=== PATIENT | female | born 1945 | race Caucasian/White ===

== ENCOUNTER 2024-08-22 08:05 | Outpatient (CLI) | payer MEDICARE, SELFPAY ==
--- OUTSIDE RECORDS SUMMARY | 2024-08-22 08:33 | XMS_ITS | Continuity of Care Document ---
Author Organization [place] - [facility] [employer] [facility], [facility] [place] Address [address] [facility] [address] [place] [address] Assessment No assessment recorded. Plan of Treatment Reminders Order Date Submit Date Provider Last Modified By Organization Details Last Modified Time Details Appointments None recorded. Lab vitamin D, 25-hydrox y, total, serum [address] [facility] [place], [address], 5 10:59:06 lipid panel, serum [address] [facility], [address] [place], [address], 5 10:59:05 CMP, serum or plasma [address] [facility], [address] [place], [address], 5 10:59:05 HbA1c (hemoglob in A1c), blood [address] [facility], [address] [place], [address], 5 10:59:05 microalbu min, urine [address] [facility], [address] [place], [address], 5 10:59:06 CBC w/ auto diff [address] [facility], [address] [place], [address], 5 10:59:04 TSH, serum or plasma [address] [facility], [address] [place], [address], 5 10:59:04 T4, free, serum [address] [facility], [address] [place], [address], 5 10:59:05 Referral None recorded. Procedures None recorded. Surgeries None recorded. Imaging None recorded. Medication Orders None recorded. Patient TargetsNo targets recorded. Patient Instructions Encounter Date Encounter Id Patient Instructions Last Modified By Organization Details Last Modified Time 08/21/2024 [id number] Hypertension, hypothyroidism, hyperlipidemia, type 2 diabetes, and anxiety disorder clinically stable. Check blood work in the form of CBC, CMP, lipid, thyroid, hemoglobin A1c microalbumin. Will also get a vitamin-D level. Follow-up in six months Additional Orders - Directives - Recommendations 1. check with [facility] pharmacy and see if she has received the most recent pneumonia shot Follow Up: 6 Months Approximate Date: 02/17/2025 Portions of record are template driven. When necessary additional context will be provided. Additionally some portions have been created with voice recognition software. Occasional wrong-word or [id number] substitutions may have occurred due to the inherent limitations of voice recognition software. Read the chart carefully and recognize, using context, where substitutions may have occurred. Created: Peter Lux M.D. 08.21.2024 09:44 AM Not available 08/21/2024 10:44:23 Reason for Referral None Reported. Problems Name Problem SNOMED Code Status Onset Date Resolution Date Notes Provider Name and Address Organization Details Recorded Time Anxiety disorder 322191100 Active 2018 Not Available [facility] 3 20:48:10 Gastroesophag eal reflux disease 891627737 Active Not Available [facility] 3 20:48:10 Pure hypercholeste rolemia 866038808 Active Not Available [facility] 3 20:48:10 Low back strain 665996130 Active 2021 Not Available [facility] 3 20:48:10 Postartificia l menopausal syndrome 45864697 Active Not Available [facility] 3 20:48:10 Vitamin D deficiency 27211289 Active 2021 Not Available [facility] 3 20:48:10 Depressive disorder 31588132 Active 2018 Not Available [facility] 3 20:48:10 Hypothyroidis m 78559655 Active Not Available [facility] 3 20:48:10 Type 2 diabetes mellitus 98328297 Active Not Available [facility] 3 20:48:10 Essential hypertension 02278094 Active 2021 Not Available [facility] 3 20:48:10 Increased liver function 06050502 Active Not Available [facility] 3 20:48:10 Cough 49063782 Active 2022 Not Available [facility] 3 20:48:10 Senile osteoporosis 52983569 Active 2022 Not Available [facility] 3 20:48:10 Mammography abnormal 827834736 Active 2022 Not Available [facility] 3 20:48:10 Type 2 diabetes mellitus without complication 223603687 Active 2023 Loly cisneros, [facility] 4 10:30:02 Hyponatremia 71439590 Active 2023 Bing Cleveland CMA [facility] 4 10:54:26 Problem Notes None recorded. Medical Equipment None Reported. Allergies Allergen ID Allergen Name Allergen Category Reaction Reaction Severity Criticality Documentation Date Start Date Code Code System Note Provider Name and Address Organization Details Recorded Time 07815 Substance with sulfonami de structure and antibacte rial mechanism of action (substanc e) medicatio n rash Not available Not available 08/09/2022 [id number] SNOMED Not Available [facility] 3 15:28:07 Medications Name Sig Start Date Stop Date Status Note LastModified by Organization Details LastModified Time Pravachol 40 mg tablet Take 1 tablet every day by oral route. active Not Available Not Available No t Available cyclobenz aprine 10 mg tablet TAKE 1 TABLET BY MOUTH THREE TIMES DAILY 02/20 completed Not Available Not Available Not Available amoxicill in 500 mg capsule Take 1 capsule 3 times a day by oral route for 10 days. 07/20 completed Not Available Not Available Not Available metformin 500 mg tablet TAKE 1 TABLET THREE TIMES A DAY WITH FOOD active Not Available Not Available No t Available Tylenol-C odeine #4 300 mg-60 mg tablet Take 1 tablet every 6 hours by oral route. 08/06 completed Not Available Not Available Not Available lisinopri l 20 mg-hydroc hlorothia zide 12.5 mg tablet TAKE ONE TABLET TWICE DAILY 02/21 completed Not Available Not Available Not Available azithromy tiff 250 mg tablet TK 2 TS PO ON DAY 1, THEN TK 1 T PO D FOR 4 DAYS 08/26 completed Not Available Not Available Not Available benzonata te 200 mg capsule TAKE 1 CAPSULE BY MOUTH THREE TIMES DAILY 02/20 completed Not Available Not Available Not Available lisinopri l 20 mg tablet Take 1 tablet every day by oral route. 02/21 completed Not Available Not Available Not Available diphenoxy late-atro pine 2.5 mg-0.025 mg tablet TAKE ONE TABLET EVERY 6 HOURS NEEDED FOR DIARRHEA 07/14 completed Not Available Not Available Not Available amlodipin e 2.5 mg tablet TAKE 1 TABLET BY MOUTH DAILY 12/20 completed Not Available Not Available Not Available chlorthal idone 25 mg tablet T1 08/27 completed Not Available Not Available Not Available Aspir-Low 81 mg tablet,de layed release Take 1 tablet every day by oral route. 2013 active Not Available Not Available Not Avai lable amlodipin e 5 mg tablet TAKE 1 TABLET BY MOUTH EVERY DAY active Not Available Not Available No t Available glimepiri de 2 mg tablet TAKE ONE TABLET DAILY 07/14 completed Patient takes 1/2 tablet daily (1mg daily) Not Available Not Available Not Available levothyro xine 75 mcg tablet TAKE 1 TABLET BY MOUTH DAILY IN THE MORNING ON AN EMPTY STOMACH active Not Available Not Available No t Available Macrobid 100 mg capsule Take 1 capsule every 12 hours by oral route. 02/04 completed Not Available Not Available Not Available benzonata te 100 mg capsule Take 1 capsule 3 times a day by oral route. 07/14 completed Not Available Not Available Not Available simvastat in 20 mg tablet TAKE 1 TABLET BY MOUTH DAILY active Not Available Not Available No t Available metformin 1,000 mg tablet TAKE 1 TABLET BY MOUTH TWICE DAILY 02/20 completed Not Available Not Available Not Available hydrochlo rothiazid e 25 mg tablet TAKE 1 TABLET BY MOUTH EVERY DAY 02/20 completed Not Available Not Available Not Available methylpre dnisolone 4 mg tablets in a dose pack Take by oral route as per package insert 01/12 completed Not Available Not Available Not Available lisinopri l 40 mg tablet TAKE 1 TABLET BY MOUTH DAILY active Not Available Not Available No t Available Mucinex 600 mg tablet, extended release Take 1 tablet every 12 hours by oral route. active Not Available Not Available No t Available escitalop hema 10 mg tablet Take 1 tablet every day by oral route. 04/01 completed Not Available Not Available Not Available escitalop hema 20 mg tablet TAKE 1 TABLET BY MOUTH DAILY active Not Available Not Available No t Available Vitamin D3 qd 01/18 completed Not Available Not Available Not Available Calcium 600 with Vitamin D3 10/01 completed Not Available Not Available Not Available hydrochlo rothiazid e 12.5 mg tablet Take 1 tablet every day by oral route. 12/07 completed Not Available Not Available Not Available Caltrate plus D 600 mg (carbonat e)-20 mcg (800 unit) chewable tablet Take 1 tablet every day by oral route. 2017 active Not Available Not Available Not Avai lable Vitals Date Recorded Body height Body mass index (BMI) Body weight Heart rate Body temperature Oxygen saturation Oxygen saturation in Arterial blood by Pulse oximetry Systolic blood pressure Diastolic blood pressure Provider Name and Address Organization Details Last Updated DateTime 5 157.48 cm 26.3 kg/m2 47199.3 g 89 /min 97 [degF] 97 % 97 % 122 mm[Hg] 74 mm[Hg] Holly Walden [place] - [facility] [employer] 5 10:29:39 Social History Question Answer Notes LastModified by Organizat ion Details LastModified Time In The 14 Days Before Symptom Onset, Have You Had Close Contact With A Laboratory-confirme d COVID-19 While That Case Was Ill? No [id number] Information not available 08/09/2022 In The 14 Days Before Symptom Onset, Have You Had Close Contact With A Person Who Is Under Investigation For COVID-19 While That Person Was Ill? No [id number] Information not available 08/09/2022 Have You Recently Traveled Abroad? No [id number] Information not available 08/09/2022 Sex: Unknown Functional Status None recorded. Mental Status None recorded. Family History Nothing Reported Notes:Mother 90 yea rs old from Dementia and CHF Father 89 years old from HTN, Arthritis and infirmities 2 Brothers 1 Living of cirrhosis 2 Sisters 2 Living Medical History Condition Response NERVE DISEASE N BLINDNESS N RHEUMATIC FEVER N KIDNEY STONES N BLADDER PROBLEMS N OTHER # 1 N POLIO N LUNG DISEASE/DISORDER N RADIATION / CHEMOTHERAPY N COPD N Other # 2 N BLOOD DISEASES N SURGERY N EAR OR HEARING PROBLEMS N MUMPS N BOWEL PROBLEMS N DEPRESSION (INCLUDING POST ) Y STROKE/TIA N ULCERS N BENIGN PROSTATIC HYPERPLASIA N MEASLES N MYOCARDIAL INFARCTION N OBESITY N GERD/NAUSEA Y ANEURYSM N URINARY/BLADDER/KIDNEY PROBLEMS N INPATIENT PSYCH CARE N CORONARY ARTERY DISEASE (CAD) N ADDICTION CONCERNS N ENDOMETRIOSIS N Impotence N USE OF BLOOD THINNERS N SKIN PROBLEMS N GASTROINTESTINAL DISORDER N PERIPHERAL VASCULAR DISEASE N MUSCLE,JOINT OR BONE PROBLEMS N GASTROINTESTINAL BLEEDING N BLOOD CLOTS N ASTHMA N CATARACTS N ERECTILE DYSFUNCTION N VARICOSITIES N GI PROBLEMS N Low Testosterone N INFERTILITY N AIDS/HIV N CHEMOTHERAPY / RADIATION N LIVER DISEASE N MALE HYPOGONADISM N HYPERTENSION Y Deficiency N ANXIETY DISORDER Y BLOOD TRANSFUSION N ANEMIA/BLOOD DISORDER N CHRONIC EAR INFECTIONS N BRONCHITIS N TUBERCULOSIS N GLAUCOMA N FOOT PROBLEM N DIVERTICULITIS N SLEEP APNEA N CHICKENPOX N INFECTIOUS DISEASE N HEART ARRHYTHMIA N PROSTATE N INSOMNIA N HIGH CHOLESTEROL / HYPERLIPIDEMIA Y HYPERTHYROIDISM N EYE PROBLEMS N NEUROLOGICAL PROBLEMS N EDEMA N CHRONIC PAIN SYNDROME N HYPOTHYROIDISM Y CAROTID BLOCKAGE N CONSTIPATION N BACK / NECK PROBLEMS N HAVE YOU BEEN HOSPITALIZED OR SEEN IN [facility] IN THE PAST YEAR ? N ATHEROSCLEROSIS N BREAST PROBLEMS N DIALYSIS N ECZEMA N OSTEOPOROSIS N ARTHRITIS N NO SIGNIFICANT PAST MEDICAL HISTORY N APPENDICITIS N DIABETES, TYPE Y BAD TEETH N ENT N HEARTBURN / REFLUX N AUTISM SPECTRUM DISORDER (ASD) N HEPATITIS / LIVER DISEASE N PULMONARY DISEASE N GOUT N SLEEP DISORDER N ALZHEIMER'S DISEASE N Brain Problems N HERPES N DEMENTIA N HEADACHES/MIGRAINES N SEIZURES/EPILEPSY N VASCULAR DISEASE N PACEMAKER N Blood Disorder N DIZZINESS N HEART DISEASE/HEART PROBLEMS N KIDNEY DISEASE N MULTIPLE SCLEROSIS N CARDIAC ARRHYTHMIA N CANCER: SPECIFY N ANESTHESIA COMPLICATIONS N ATRIAL FIBRILLATION N Gall Stones N PULMONARY EMBOLISM N AUTOIMMUNE DISEASE N Gynecological HistoryNo gynecological history recorded. Obstetrics History GPAL:G 0 P 0 0 0 0 Immunizations Vaccine Type Date Status Note Provider Nam e and Address Organization Details Recorded Time Respiratory syncytial virus (RSV) MAB, unspecified 3 completed [facility] [employer] [facility] 04/19/2023 16:29:34 Influenza, high-dose, trivalent, PF 4 [facility]24 17:34:10 influenza, unspecified formulation 8 completed Not Available [facility] 08/09/2022 15:27:57 Influenza, high-dose, trivalent, PF 7 completed Not Available [facility] 08/09/2022 15:27:57 Influenza, high-dose, trivalent, PF 3 completed Not Available [facility] 08/09/2022 15:27:57 SARS-COV-2 (COVID-19) vaccine, UNSPECIFIED 1 completed Not Available [facility] 08/09/2022 15:27:57 SARS-COV-2 (COVID-19) vaccine, UNSPECIFIED 1 completed Not Available [facility] 08/09/2022 15:27:57 Pneumococcal conjugate PCV 13 5 completed Not Available [facility] 08/09/2022 15:27:57 Past Encounters Encounter ID Performer Location Encounter Start Date Encounter Closed Date Diagnosis/Indication Diagnosis SNOMED-CT Code Diagnosis ICD10 Code Diagnosis Note [id number] Peter Lux MD [facility] [address] [place] [address] 08/21/2024 10:03:42 08/21/2024 11:07:39 Essential hypertension 43325076 I10 Hypothyroidism 22101090 E03.9 Pure hypercholesterolemia 422413428 E78.00 Anxiety disorder 4594571 06 F41.9 Type 2 rosario betes mellitus without complication 490759404 E11.9 Vitamin D deficiency 347 64631 E55.9 Health Concerns Section Related Observation LastModified by Organization Detai ls LastModified Time None Recorded Concern Status LastModified by Organization Details LastModified Time None Recorded Payers Encounter Date Sequence Insurance Name Policy Number Policy Jacob Covered Member ID Jacob Member ID Guarantor Name 08/21/2024 1 [facility] (MEDICARE REPLACEMENT/A DVANTAGE - HMO) [id number] Chantel Carson [id number] Chantel Carson Notes Date Note Type Note Provider Name and Address Organization Details Recorded Time text/html Patient Name: Chantel YeesDate Of Service: August ( 08.21.2024 ): 1945 Age: 79 There has been approximately a 6 lb weight gain since 02/21/2024. This represents approximately a 4.3% change in weight. Weight change attributable to lifestyle changes. Vital Signs:Blood Pressure: Sitting Rt. Arm 122/74Pulse: Sitting 89 /min and RegularRespiratory Rate: 16Height 62 in or 1.6 mWeight 144 lb or 65.3 kgBMI 26.3Temperature: 97 F or 36.1 CPulse Oximetry: 97 % at rest on no oxygen Chief Complaint: Addressed in HPI Problems or conditions discussed in the HPI were the only ones reviewed during the encounter.Only social and family history addressed in the HPI were reviewed during this encounter. Attendant(s): NoneConstitutional and Systemic Symptoms:none Medication Reconciliation: from medication list. History of Present Illness #1. Essential Hypertension: Stage: Stage I Interval Neurological Complaints no headaches. No shortness of breath, orthopnea or cardiovascular symptoms. No other symptoms related to end organ damage. Pressure has been under fair control. Currently normal. No other end organ symptoms or findings. Therapy reviewed regarding management of hypertension and includes salt restriction and Lisinopril and Norvasc. #2. Type II Hypercholesterolaemia: Currently taking medication and tolerating well. No interval complaints of any muscle pain or arthralgia. No significant liver changes with medications. Last lipid panel: excellent control. Therapy reviewed regarding treatment of cholesterol management and include diet and Zocor. #3. Hx of hypothyroidism currently stable. Heat intolerance: no Fatigue: no Weight gain: no Difficulty concentrating: no Muscle Symptoms: none Skin Texture: normal Skin Color: normal Currently taking synthroid. #4. Type II Diabetes: Has had no polyuria polyphagia or polydipsia. Has had no hypoglycemic like responses. No new history of any numbness, tingling, weakness or visual problems. No nausea, anorexia or other constitutional symptoms. There has been no foot problems or non healing lesions. The last HAIC was DCCT HAIC: 6.1 Calculated MB mg%. CGM: No. Average blood sugars 100-115 mg%. Checking sugars : infrequently. Medication Types Include: diet Secondary complications include none. Macro-vascular complications include none. Therapy reviewed regarding diabetic management and include diet only Compliance: good Renal Protection: ARELIS inhibitors Lipid management: statins Urinary microalbumin: A1 . Ophthalmological: has seen eye doctor within the last year. Control: Below 6.2 #5. Anxiety Disorder: History of anxiety disorder. There has been no panic attacks. No interval complaints of any vegetative or other signs of depression. Taking no escitalopram Discussed possibility of decreasing and weaning off medication. Feels that current regimen is working fine and wishes not to change the current treatment regimen. Medication not causing any sedation or cognitive dysfunction and there is no contraindication to continue current therapy. Active Medication ListSynthroid 0.075 MG One Daily For ThyroidEscitalopram 20 MG (CAPSULE - ORAL) One DailyLisinopril 40 MG TABLET Once DailyAspirin 81 MG One DialyZocor 20 MG (TABLET - ORAL) Once DailyNorvasc 5 MG (TABLET - ORAL) Once Daily Social HistorySOCIAL HISTORY:Smoking Hx: 1 of cigarettes per day for 5 years. Quit 1968 Drinking Hx: 3 Cups of coffee per day, 2 Cups of tea per day.Exercise: InfrequentlySexual Hx: Sexually ActiveOccupation: Housewife Family HistoryFAMILY HISTORY:Mother 90 years old from Dementia and CHFFather 89 years old from HTN, Arthritis and infirmities2 Brothers 1 Living of cirrhosis2 Sisters 2 Living TEST RESULT RANGE UNITSCBC/COMPLETE BLD COUNT W/DIFF Date: 02/21/2024WHITE BLOOD CELLS 7.7 4.2-10.8 X10'3/ULHEMOGLOBIN 12.6 12.0-15.6 G/DLHEMATOCRIT 38.3 35.7-45.7 %PLATELETS 296 150-400 X10'3/ULCOMPREHENSIVE METABOLIC PANEL Date: 02/21/2024SODIUM 134 137-145 MMOL/LPOTASSIUM 4.7 3.5-5.1 MMOL/LALKALINE PHOSPHATASE 64 38-126 U/LALANINE AMINOTRANSFERASE 25 0-35 U/LASPARTATE AMINOTRANSFERASE 38 15-37 U/LBILIRUBIN, TOTAL 0.80 0.20-1.30 MG/DLCALCIUM 9.3 8.4-10.2 MG/DLHA1C, SEND-OUT TO [facility] Date: 02/21/2024HEMOGLOBIN A1C 6.1 4.8-5.6 %LIPID PANEL Date: 4CHOLESTEROL 147 140-199 MG/DLTRIGLYCERIDES 191 0-150 MG/DLLDL CHOLESTEROL, CALCULATED 60 0-130 MG/DLHDL CHOLESTEROL 49 40- MG/DL Peter Lux MD [address] [facility], [facility] [address], [place], [address], [place] [facility] 08/21/2024 10:44:39 OBGyn Episode No OBEpisode recorded.
--- OUTSIDE RECORDS SUMMARY | 2024-08-22 08:33 | XMS_ITS | Data Portability ---
Author Organization [place] - [facility] [employer], Main Office Address [address] [place] [address] Assessment No assessment recorded. Plan of Treatment Reminders Order Date Submit Date Provider Last Modified By Organization Details Last Modified Time Details Appointments None recorded. Lab vitamin D, 25-hydrox y, total, serum 025 025 [facility] - Outpatient Lab, [address] [place], [address], 5 10:59:06 lipid panel, serum [address] Outpatient Lab, [address] [place], [address], 5 10:59:05 CMP, serum or plasma [address] Outpatient Lab, [address] [place], [address], 5 10:59:05 HbA1c (hemoglob in A1c), blood 025 025 [email or web address] [facility] Outpatient Lab, [address] [place], [address], 5 10:59:05 microalbu min, urine [address] Outpatient Lab, [address] [place], [address], 5 10:59:06 CBC w/ auto diff [address] Outpatient Lab, [address] [place], [address], 5 10:59:04 TSH, serum or plasma 025 025 [id number] [facility] - Outpatient Lab, [address] [place], [address], 5 10:59:04 T4, free, serum 025 025 [facility] - Outpatient Lab, [address] [place], [address], 5 10:59:05 HbA1c (hemoglob in A1c), blood 024 024 [id number] [facility] - Outpatient Lab, [address] [place], [address], 4 14:41:13 lipid panel, serum 024 024 [id number] [facility] - Outpatient Lab, [address] [place], [address], 4 14:41:12 CMP, serum or plasma 024 024 [id number] [facility] - Outpatient Lab, [address] [place], [address], 4 14:41:12 TSH, serum or plasma 024 024 [id number] [facility] - Outpatient Lab, [address] [place], [address], 4 14:41:12 T4, free, serum 024 024 [facility] - Outpatient Lab, [address] [place], [address], 4 14:41:13 CBC w/ auto diff 024 024 [id number] [facility] - Outpatient Lab, [address] [place], [address], 4 14:41:13 HbA1c (hemoglob in A1c), blood [id number] [place] [address] Outpatient Lab, [address] [place], [address], 4 15:58:22 microalbu min/creat inine, mass ratio, urine [id number] [place] [address] - Outpatient Lab, [address] [place], [address], 4 15:58:22 lipid panel, serum 024 [facility] Outpatient Lab, [address] [place], [address], 4 14:59:21 CMP, serum or plasma [facility] Outpatient Lab, [address] [place], [address], 4 14:59:36 CBC w/ auto diff 024 [facility] Outpatient Lab, [address] [place], [address], 4 13:02:26 TSH, serum or plasma 024 [facility] Outpatient Lab, [address] [place], [address], 4 15:51:29 T4, free, serum 024 [facility] Outpatient Lab, [address] [place], [address], 4 15:17:12 HbA1c (hemoglob in A1c), blood [id number] Outpatient Lab, [address] [place], [address], 3 17:52:05 microalbu min/creat inine, mass ratio, urine 023 023 [id number] [facility] Outpatient Lab, [address] [place], [address], 3 17:52:05 lipid panel, serum [address] [facility] Outpatient Lab, [address] [place], [address], 3 13:54:26 CMP, serum or plasma [address] [facility] Outpatient Lab, [address] [place], [address], 3 13:54:31 CBC w/ auto diff [address] [facility] Outpatient Lab, [address] [place], [address], 3 13:47:30 TSH, serum or plasma [address] [facility] Outpatient Lab, [address] [place], [address], 3 14:21:17 T4, free, serum [address] [facility] Outpatient Lab, [address] [place], [address], 3 14:09:27 HbA1c (hemoglob in A1c), blood 023 023 [email or web address] [facility] Outpatient Lab, [address] [place], [address], 3 15:14:04 microalbu min, urine [address] [facility] Outpatient Lab, [address] [place], [address], 3 18:53:51 lipid panel, serum [address] [facility] Outpatient Lab, [address] [place], [address], 3 18:51:45 CMP, serum or plasma [address] [facility] Outpatient Lab, [address] [place], [address], 3 18:51:41 CBC w/ auto diff [address] [facility] Outpatient Lab, [address] [place], [address], 3 18:28:57 TSH, serum or plasma [address] [facility] Outpatient Lab, [address] [place], [address], 3 19:20:04 T4, free, serum [address] [facility] Outpatient Lab, [address] [place], [address], 3 19:18:27 Referral None recorded. Procedures None recorded. Surgeries None recorded. Imaging None recorded. Medication Orders None recorded. Patient TargetsNo targets recorded. Patient Instructions Encounter Date Encounter Id Patient Instructions Last Modified By Organization Details Last Modified Time 08/25/2022 [id number] Follow-up hypertension -hyperlipidemia- type 2 diabetes -hypothyroidism clinically stable. Check blood work in the form of CBC, CMP, lipid, thyroid, hemoglobin A1c and microalbumin. Continue on current Rx and follow-up in six months [email or web address] Not available 08/25/2022 11:27:49 02/23/2023 [id number] Hypertension -hypothyroidism -hyperlipidemia- type 2 diabetes all clinically stable. Does need a Cologuard test. Will check blood work consisting of CBC, CMP, lipid, thyroid, hemoglobin A1c and microalbumin. Continue on current medications and follow-up in six months. Portions of the record may have been created with voice recognition software. Occasional wrong-word or s ound-a-like substitutions may have occurred due to the inherent limitations of voice recognition software. Read the chart carefully and recognize, using context, where substitutions have occurred. Leda Next Appt: 6 Months Approximate Date: 08/22/2023 [email or web address] Not available 02/23/2023 11:00:38 08/24/2023 [id number] Follow-up hypertension, hypothyroidism, hyperlipidemia, type 2 diabetes of mild anxiety and depressive disorder all clinically stable. Check blood work consisting of CBC, CMP, lipid, thyroid, hemoglobin A1c and microalbumin. Continue on current medications and follow-up in six months Portions of the record may have been created with voice recognition software. Occasional wrong-word or s ound-a-like substitutions may have occurred due to the inherent limitations of voice recognition software. Read the chart carefully and recognize, using context, where substitutions have occurred. [email or web address] Not available 08/24/2023 11:29:33 02/21/2024 [id number] Follow up for HT N, Cholesterol, Diabetes, Hypothyroidism and Depression stable. Continue on current Rx. Check CBC,CMP,Thyroid,Lip id and HAIC. Next Appointment: 6 Months Approximate Date: 08/19/2024 Portions of the record may have been created with voice recognition software. Occasional wrong-word or s ound-a-like substitutions may have occurred due to the inherent limitations of voice recognition software. Read the chart carefully and recognize, using context, where substitutions have occurred. [email or web address] Not available 02/21/2024 14:38:57 08/21/2024 [id number] Hypertension, hypothyroidism, hyperlipidemia, type 2 diabetes, and anxiety disorder clinically stable. Check blood work in the form of CBC, CMP, lipid, thyroid, hemoglobin A1c microalbumin. Will also get a vitamin-D level. Follow-up in six months Additional Orders - Directives - Recommendations 1. check with [facility] pharmacy and see if she has received the most recent pneumonia shot Follow Up: 6 Months Approximate Date: 02/17/2025 Portions of record are template driven. When necessary additional context will be provided. Additionally some portions have been created with voice recognition software. Occasional wrong-word or s ound-a-like substitutions may have occurred due to the inherent limitations of voice recognition software. Read the chart carefully and recognize, using context, where substitutions may have occurred. Created: Peter Lux M.D. 08.21.2024 09:44 AM [email or web address] Not available 08/21/2024 10:44:23 Reason for Referral None Reported. Results Created Date Observation Date Name Description Value Unit Range Abnormal Flag Note LastModifiedBy Organization Detail LastModifiedTime 08/26/1908/25/2022 CBC/C OMPLE TE BLD COUNT W/DIF F white blood cells 7.5 x10'3 /uL 4.2-10 .8 Not Available [facility] (Lab) [address] [place], [address], 08/25/2022 18:28:57 08/26/19 23 08/25/2022 CBC/C OMPLE TE BLD COUNT W/DIF F red blood cells 4.20 x10'6 /uL 3.80-5 .20 Not Available [facility] (Lab) [address] [place], [address], 08/25/2022 18:28:57 08/26/19 23 08/25/2022 CBC/C OMPLE TE BLD COUNT W/DIF F hemoglobin 12.1 g/dL 12.0-1 5.6 Not Available [facility] (Lab) [address] [place], [address], 08/25/2022 18:28:57 08/26/19 23 08/25/2022 CBC/C OMPLE TE BLD COUNT W/DIF F hematocrit 38.6 % 35.7-4 5.7 Not Available [facility] (Lab) [address] [place], [address], 08/25/2022 18:28:57 08/26/19 23 08/25/2022 CBC/C OMPLE TE BLD COUNT W/DIF F mean red cell volume 91.9 fL 82.0-9 9.0 Not Available [facility] (Lab) [address] [place], [address], 08/25/2022 18:28:57 08/26/19 08/25/2022 CBC/C OMPLE TE BLD COUNT W/DIF F mean red cell hemoglobin 28.8 pg 27.0-3 3.0 Not Available [facility] (Lab) [address] [facility] [place], [address], 08/25/2022 18:28:57 08/26/19 23 08/25/2022 CBC/C OMPLE TE BLD COUNT W/DIF F mean RBC HGB concentratio n 31.3 g/dL 31.0-3 6.0 Not Available [facility] (Lab) [address] [place], [address], 08/25/2022 18:28:57 08/26/19 23 08/25/2022 CBC/C OMPLE TE BLD COUNT W/DIF F red cell distribution width 14.3 % 11.8-1 5.5 Not Available [facility] (Lab) [address] [place], [address], 08/25/2022 18:28:57 08/26/19 23 08/25/2022 CBC/C OMPLE TE BLD COUNT W/DIF F platelets 319 x10'3 /uL 150-40 0 Not Available [facility] (Lab) [address] [place], [address], 08/25/2022 18:28:57 08/26/19 23 08/25/2022 CBC/C OMPLE TE BLD COUNT W/DIF F mean platelet volume 10.3 fL 9.0-12 .4 Not Available [facility] (Lab) [address] [place], [address], 08/25/2022 18:28:57 08/26/19 23 08/25/2022 CBC/C OMPLE TE BLD COUNT W/DIF F neutrophils 55.8 % 39.0-7 2.0 Not Available [facility] (Lab) [address] [place], [address], 08/25/2022 18:28:57 08/26/19 23 08/25/2022 CBC/C OMPLE TE BLD COUNT W/DIF F lymphocytes 33.0 % 16.0-4 7.0 Not Available [facility] (Lab) [address] [place], [address], 08/25/2022 18:28:57 08/26/19 23 08/25/2022 CBC/C OMPLE TE BLD COUNT W/DIF F monocytes 8.4 % 5.0-12 .0 Not Available [facility] (Lab) [address] [place], [address], 08/25/2022 18:28:57 08/26/19 23 08/25/2022 CBC/C OMPLE TE BLD COUNT W/DIF F eosinophils 1.9 % 1.0-7. 0 Not Available [facility] (Lab) [address] [place], [address], 08/25/2022 18:28:57 08/26/19 23 08/25/2022 CBC/C OMPLE TE BLD COUNT W/DIF F basophils 0.8 % 0.0-2. 0 Not Available [facility] (Lab) [address] [place], [address], 08/25/2022 18:28:57 08/26/19 23 08/25/2022 CBC/C OMPLE TE BLD COUNT W/DIF F immature granulocytes 0.1 % 0.00-0 .50 Not Available [facility] (Lab) [address] [place], [address], 08/25/2022 18:28:57 08/26/19 23 08/25/2022 CBC/C OMPLE TE BLD COUNT W/DIF F neutrophils, absolute count 4.17 x10'3 /uL 1.5-8. 0 Not Available [facility] (Lab) [address] [place], [address], 08/25/2022 18:28:57 08/26/19 23 08/25/2022 CBC/C OMPLE TE BLD COUNT W/DIF F lymphocytes, absolute count 2.47 x10'3 /uL 1.07-3 .43 Not Available [facility] (Lab) [address] [place], [address], 08/25/2022 18:28:57 08/26/19 23 08/25/2022 CBC/C OMPLE TE BLD COUNT W/DIF F monocytes, absolute count 0.63 x10'3 /uL 0.29-0 .99 Not Available [facility] (Lab) [address] [place], [address], 08/25/2022 18:28:57 08/26/19 23 08/25/2022 CBC/C OMPLE TE BLD COUNT W/DIF F eosinophils, absolute count 0.14 x10'3 /uL 0.02-0 .53 Not Available [facility] (Lab) [address] [place], [address], 08/25/2022 18:28:57 08/26/1908/25/2022 CBC/C OMPLE TE BLD COUNT W/DIF F basophils, absolute count 0.06 x10'3 /uL 0.01-0 .08 Not Available [facility] (Lab) [address] [place], [address], 08/25/2022 18:28:57 08/26/1908/25/2022 CBC/C OMPLE TE BLD COUNT W/DIF F immature granulocytes ,absolute 0.01 x10'3 /uL 0.00-0 .05 Not Available [facility] (Lab) [address] [place], [address], 08/25/2022 18:28:57 08/26/19 23 08/25/2022 CBC/C OMPLE TE BLD COUNT W/DIF F nucleated red blood cells 0.0 % -0 Not Available [facility] (Lab) [address] [place], [address], 08/25/2022 18:28:57 08/26/1908/25/2022 CBC/C OMPLE TE BLD COUNT W/DIF F NRBC# 0.00 x10'3 /uL Not Available [facility] (Lab) [address] [place], [address], 08/25/2022 18:28:57 08/26/19 23 08/25/2022 COMPR EHENS RA METAB OLIC PANEL sodium 135 mmol/ L 137-14 5 low Not Available [facility] (Lab) [address] [place], [address], 08/25/2022 18:51:41 08/26/19 23 08/25/2022 COMPR EHENS RA METAB OLIC PANEL potassium 3.8 mmol/ L 3.5-5. 1 Not Available [facility] (Lab) [address] [place], [address], 08/25/2022 18:51:41 08/26/19 23 08/25/2022 COMPR EHENS RA METAB OLIC PANEL chloride 99 mmol/ L 98-107 Not Available [facility] (Lab) [address] [place], [address], 08/25/2022 18:51:41 08/26/19 23 08/25/2022 COMPR EHENS RA METAB OLIC PANEL carbon dioxide 26 mmol/ L 22-30 Not Available [facility] (Lab) [address] [place], [address], 08/25/2022 18:51:41 08/26/19 23 08/25/2022 COMPR EHENS RA METAB OLIC PANEL anion gap 13.8 mmol/ L 14-22 low Not Available [facility] (Lab) [address] [place], [address], 08/25/2022 18:51:41 08/26/19 23 08/25/2022 COMPR EHENS RA METAB OLIC PANEL glucose 95 mg/dL 70-99 Not Available [facility] (Lab) [address] [place], [address], 08/25/2022 18:51:41 08/26/19 23 08/25/2022 COMPR EHENS RA METAB OLIC PANEL BUN 19 mg/dL 8-19 Not Available [facility] (Lab) [address] [place], [address], 08/25/2022 18:51:41 08/26/19 23 08/25/2022 COMPR EHENS RA METAB OLIC PANEL creatinine 0.78 mg/dL 0.66-1 .25 Not Available [facility] (Lab) [address] [place], [address], 08/25/2022 18:51:41 08/26/1908/25/2022 COMPR EHENS RA METAB OLIC PANEL GFR >60 Refer ence Range : [place] ge GFR Healt hy Adult : >60 mL/mi n/1.7 3 m2 Chron ic Kidne y Disea se: 15-60 mL/mi n/1.7 3 m2 Kidne y Failu re: <15/m L/min /1.73 m2 www.n iddk. nih.g ov The MDRD study equat ion has not been valid ated in child marco antonio <18 years of age; pregn ant women ; the elder ly >85 years of age; or in some racia l or ethni c subgr oups, such as Hispa nics. Outsi de the valid ated gabriel eters , estim ated GFR is less accur ate, requi ring clini keith judgm ent on a case- by-ca se basis . Clini keith inter preta tion for other races and ages must be made by the clini jennifer. The MDRD study equat ion has not been valid ated for the evalu ation of serum creat inine relat ed to nutri samuel l statu s or medic ation usage . For perso ns <18 years of age, a pedia tric GFR calcu lator is avail able on the [facility] websi te: https :[email or web address] xiao.wilberto lou/demetrius fragosoal s/kdo qi/gf r_cal culat or Not Available [facility] (Lab) [address] [place], [address], 08/25/2022 18:51:41 08/26/19 23 08/25/2022 COMPR EHENS RA METAB OLIC PANEL alkaline phosphatase 64 U/L 38-126 Not Available [facility] (Lab) [address] [place], [address], 08/25/2022 18:51:41 08/26/19 23 08/25/2022 COMPR EHENS RA METAB OLIC PANEL alanine aminotransfe rase 19 U/L 0-35 Not Available [facility] (Lab) [address] [place], [address], 08/25/2022 18:51:41 08/26/19 23 08/25/2022 COMPR EHENS RA METAB OLIC PANEL aspartate aminotransfe rase 28 U/L 15-37 Not Available [facility] (Lab) [address] [place], [address], 08/25/2022 18:51:41 08/26/19 23 08/25/2022 COMPR EHENS RA METAB OLIC PANEL bilirubin, total 0.80 mg/dL 0.20-1 .30 Not Available [facility] (Lab) [address] [place], [address], 08/25/2022 18:51:41 08/26/19 23 08/25/2022 COMPR EHENS RA METAB OLIC PANEL calcium 9.3 mg/dL 8.4-10 .2 Not Available [facility] (Lab) [address] [place], [address], 08/25/2022 18:51:41 08/26/19 23 08/25/2022 COMPR EHENS RA METAB OLIC PANEL total protein 7.8 g/dL 6.3-8. 2 Not Available [facility] (Lab) [address] [place], [address], 08/25/2022 18:51:41 08/26/19 23 08/25/2022 COMPR EHENS RA METAB OLIC PANEL albumin 4.6 g/dL 3.0-4. 4 high Not Available [facility] (Lab) [address] [place], [address], 08/25/2022 18:51:41 08/26/19 23 08/25/2022 COMPR EHENS RA METAB OLIC PANEL globulin 3.2 g/dL 2.6-4. 2 Not Available [facility] (Lab) [address] [place], [address], 08/25/2022 18:51:41 08/26/19 23 08/25/2022 COMPR EHENS RA METAB OLIC PANEL A/G ratio 1.4 ratio 1.0-2. 0 Not Available [facility] (Lab) [address] [place], [address], 08/25/2022 18:51:41 08/26/19 23 08/25/2022 LIPID PANEL cholesterol 137 mg/dL 140-19 9 low NIH YANG NSUS RECOM MENDA TION FOR BRITTNI STERO L: ADULT CHILD LOW RISK: <200 <170 BORDE RLINE : <200- 239 ----- HIGH RISK: >240 >200 Not Available [facility] (Lab) [address] [place], [address], 08/25/2022 18:51:45 08/26/1908/25/2022 LIPID PANEL triglyceride s 114 mg/dL 0-150 NIH YANG NSUS REPOR T RECOM MENDA TION FOR TRIGL YCERI BECKY: ADULT CHILD LOW RISK: <150 ----- BODER LINE: 150-1 99 ----- HIGH RISK: >200 ----- Not Available [facility] (Lab) [address] [place], [address], 08/25/2022 18:51:45 08/26/19 23 08/25/2022 LIPID PANEL HDL cholesterol 56 mg/dL 40- Not Available [facility] (Lab) [address] [place], [address], 08/25/2022 18:51:45 08/26/19 23 08/25/2022 LIPID PANEL LDL cholesterol, calculated 58 mg/dL 0-130 NIH YANG NSUS REPOR T RECOM MENDA TIONS FOR LDL: ADULT CHILD LOW RISK <130 <110 (OPTI MAL LDL) <100 ----- GEORGI RLINE : 130-1 59 ----- HIGH RISK: >160 >130 A TRIGL YCERI DE RESUL T >400 INVAL IDATE S THE CALCU LATIO N FOR LDL FRACT IONAT ION - THE LDL RESUL T WILL NOT BE REPOR MARILU. Not Available [facility] (Lab) [address] [place], [address], 08/25/2022 18:51:45 08/26/19 23 08/25/2022 MICRO ALBUM IN RANDO M URINE microalbumin , urine <6.0 mg/L 0.0-16 .6 Not Available [facility] (Lab) [address] [place], [address], 08/25/2022 18:53:51 08/26/19 23 08/25/2022 T4 FREE free T4 1.55 NG/dL 0.78-2 .19 Not Available [facility] (Lab) [address] [place], [address], 08/25/2022 19:18:27 08/26/19 23 08/25/2022 TSH thyroid-stim ulating hormone 0.280 uIU/m L 0.465- 4.680 low Not Available [facility] (Lab) [address] [facility] [place], [address], 08/25/2022 19:20:04 08/26/19 23 08/25/2022 HEMOG LOBIN A1C HA1C 6.4 % 4.0-6. 0 high Diabe gordon Elvin mahajan Crite brcye: <5.7% Consi stent with absen ce of diabe gordon 5.7-6 .4% Consi stent with incre ased risk for diabe gordon (pred iabet es) >OR=6 .5% Consi stent with diabe gordon REFER ENCE: Diabe gordon Care 2016, 39( ppl.1 ):s13 -s22 Not Available [facility] (Lab) [address] [place], [address], 08/25/2022 20:48:53 02/24/20 23 02/23/2023 CBC/C OMPLE TE BLD COUNT W/DIF F white blood cells 6.8 x10'3 /uL 4.2-10 .8 Not Available [facility] (Lab) [address] [place], [address], 02/23/2023 13:47:30 02/24/20 23 02/23/2023 CBC/C OMPLE TE BLD COUNT W/DIF F red blood cells 4.40 x10'6 /uL 3.80-5 .20 Not Available [facility] (Lab) [address] [place], [address], 02/23/2023 13:47:30 02/24/20 23 02/23/2023 CBC/C OMPLE TE BLD COUNT W/DIF F hemoglobin 12.9 g/dL 12.0-1 5.6 Not Available [facility] (Lab) [address] [place], [address], 02/23/2023 13:47:30 02/24/20 23 02/23/2023 CBC/C OMPLE TE BLD COUNT W/DIF F hematocrit 39.5 % 35.7-4 5.7 Not Available [facility] (Lab) [address] [place], [address], 02/23/2023 13:47:30 02/24/20 23 02/23/2023 CBC/C OMPLE TE BLD COUNT W/DIF F mean red cell volume 89.8 fL 82.0-9 9.0 Not Available [facility] (Lab) [address] [place], [address], 02/23/2023 13:47:30 02/24/20 23 02/23/2023 CBC/C OMPLE TE BLD COUNT W/DIF F mean red cell hemoglobin 29.3 pg 27.0-3 3.0 Not Available [facility] (Lab) [address] [place], [address], 02/23/2023 13:47:30 02/24/20 23 02/23/2023 CBC/C OMPLE TE BLD COUNT W/DIF F mean RBC HGB concentratio n 32.7 g/dL 31.0-3 6.0 Not Available [facility] (Lab) [address] [place], [address], 02/23/2023 13:47:30 02/24/20 23 02/23/2023 CBC/C OMPLE TE BLD COUNT W/DIF F red cell distribution width 14.0 % 11.8-1 5.5 Not Available [facility] (Lab) [address] [place], [address], 02/23/2023 13:47:30 02/24/20 23 02/23/2023 CBC/C OMPLE TE BLD COUNT W/DIF F platelets 285 x10'3 /uL 150-40 0 Not Available [facility] (Lab) [address] [place], [address], 02/23/2023 13:47:30 02/24/20 23 02/23/2023 CBC/C OMPLE TE BLD COUNT W/DIF F mean platelet volume 10.2 fL 9.0-12 .4 Not Available [facility] (Lab) [address] [place], [address], 02/23/2023 13:47:30 02/24/20 23 02/23/2023 CBC/C OMPLE TE BLD COUNT W/DIF F neutrophils 52.5 % 39.0-7 2.0 Not Available [facility] (Lab) [address] [place], [address], 02/23/2023 13:47:30 02/24/20 23 02/23/2023 CBC/C OMPLE TE BLD COUNT W/DIF F lymphocytes 35.0 % 16.0-4 7.0 Not Available [facility] (Lab) [address] [place], [address], 02/23/2023 13:47:30 02/24/2002/23/2023 CBC/C OMPLE TE BLD COUNT W/DIF F monocytes 9.2 % 5.0-12 .0 Not Available [facility] (Lab) [address] [place], [address], 02/23/2023 13:47:30 02/24/20 23 02/23/2023 CBC/C OMPLE TE BLD COUNT W/DIF F eosinophils 2.5 % 1.0-7. 0 Not Available [facility] (Lab) [address] [place], [address], 02/23/2023 13:47:30 02/24/20 23 02/23/2023 CBC/C OMPLE TE BLD COUNT W/DIF F basophils 0.7 % 0.0-2. 0 Not Available [facility] (Lab) [address] [place], [address], 02/23/2023 13:47:30 02/24/20 23 02/23/2023 CBC/C OMPLE TE BLD COUNT W/DIF F immature granulocytes 0.1 % 0.00-0 .50 Not Available [facility] (Lab) [address] [place], [address], 02/23/2023 13:47:30 02/24/20 23 02/23/2023 CBC/C OMPLE TE BLD COUNT W/DIF F neutrophils, absolute count 3.57 x10'3 /uL 1.5-8. 0 Not Available [facility] (Lab) [address] [place], [address], 02/23/2023 13:47:30 02/24/2002/23/2023 CBC/C OMPLE TE BLD COUNT W/DIF F lymphocytes, absolute count 2.39 x10'3 /uL 1.07-3 .43 Not Available [facility] (Lab) [address] [place], [address], 02/23/2023 13:47:30 02/24/20 23 02/23/2023 CBC/C OMPLE TE BLD COUNT W/DIF F monocytes, absolute count 0.63 x10'3 /uL 0.29-0 .99 Not Available [facility] (Lab) [address] [place], [id number], 02/23/2023 13:47:30 02/24/20 23 02/23/2023 CBC/C OMPLE TE BLD COUNT W/DIF F eosinophils, absolute count 0.17 x10'3 /uL 0.02-0 .53 Not Available [facility] (Lab) [address] [place], [id number], 02/23/2023 13:47:30 02/24/2002/23/2023 CBC/C OMPLE TE BLD COUNT W/DIF F basophils, absolute count 0.05 x10'3 /uL 0.01-0 .08 Not Available [facility] (Lab) [address] [place], [id number], 02/23/2023 13:47:30 02/24/20 23 02/23/2023 CBC/C OMPLE TE BLD COUNT W/DIF F immature granulocytes ,absolute 0.01 x10'3 /uL 0.00-0 .05 Not Available [facility] (Lab) [address] [place], [id number], 02/23/2023 13:47:30 02/24/20 23 02/23/2023 CBC/C OMPLE TE BLD COUNT W/DIF F nucleated red blood cells 0.0 % -0 Not Available [facility] (Lab) [address] [place], [address], 02/23/2023 13:47:30 02/24/20 23 02/23/2023 CBC/C OMPLE TE BLD COUNT W/DIF F NRBC# 0.00 x10'3 /uL Not Available [facility] (Lab) [address] [place], [address], 02/23/2023 13:47:30 02/24/20 23 02/23/2023 LIPID PANEL cholesterol 138 mg/dL 140-19 9 low NIH YANG NSUS RECOM MENDA TION FOR BRITTNI STERO L: ADULT CHILD LOW RISK: <200 <170 BORDE RLINE : <200- 239 ----- HIGH RISK: >240 >200 Not Available [facility] (Lab) [address] [place], [address], 02/23/2023 13:54:26 02/24/2002/23/2023 LIPID PANEL triglyceride s 125 mg/dL 0-150 NIH YANG NSUS REPOR T RECOM MENDA TION FOR TRIGL YCERI BECKY: ADULT CHILD LOW RISK: <150 ----- BODER LINE: 150-1 99 ----- HIGH RISK: >200 ----- Not Available [facility] (Lab) [address] [place], [address], 02/23/2023 13:54:26 02/24/20 23 02/23/2023 LIPID PANEL HDL cholesterol 54 mg/dL 40- Not Available [facility] (Lab) [address] [place], [address], 02/23/2023 13:54:26 02/24/20 23 02/23/2023 LIPID PANEL LDL cholesterol, calculated 59 mg/dL 0-130 NIH YANG NSUS REPOR T RECOM MENDA TIONS FOR LDL: ADULT CHILD LOW RISK <130 <110 (OPTI MAL LDL) <100 ----- BORDE RLINE : 130-1 59 ----- HIGH RISK: >160 >130 A TRIGL YCERI DE RESUL T >400 INVAL IDATE S THE CALCU LATIO N FOR LDL FRACT IONAT ION - THE LDL RESUL T WILL NOT BE REPOR MARILU. Not Available [facility] (Lab) [address] [place], [address], 02/23/2023 13:54:26 02/24/2002/23/2023 COMPR EHENS RA METAB OLIC PANEL sodium 133 mmol/ L 137-14 5 low Not Available [facility] (Lab) [address] [place], [address], 02/23/2023 13:54:31 02/24/20 23 02/23/2023 COMPR EHENS RA METAB OLIC PANEL potassium 4.6 mmol/ L 3.5-5. 1 Not Available [facility] (Lab) [address] [place], [address], 02/23/2023 13:54:31 02/24/20 23 02/23/2023 COMPR EHENS RA METAB OLIC PANEL chloride 97 mmol/ L 98-107 low Not Available [facility] (Lab) [address] [place], [address], 02/23/2023 13:54:31 02/24/20 23 02/23/2023 COMPR EHENS RA METAB OLIC PANEL carbon dioxide 28 mmol/ L 22-30 Not Available [facility] (Lab) [address] [place], [address], 02/23/2023 13:54:31 02/24/20 23 02/23/2023 COMPR EHENS RA METAB OLIC PANEL anion gap 12.6 mmol/ L 14-22 low Not Available [facility] (Lab) [address] [place], [address], 02/23/2023 13:54:31 02/24/20 23 02/23/2023 COMPR EHENS RA METAB OLIC PANEL glucose 106 mg/dL 70-99 high Not Available [facility] (Lab) [address] [place], [address], 02/23/2023 13:54:31 02/24/20 23 02/23/2023 COMPR EHENS RA METAB OLIC PANEL BUN 17 mg/dL 8-19 Not Available [facility] (Lab) [address] [place], [address], 02/23/2023 13:54:31 02/24/20 23 02/23/2023 COMPR EHENS RA METAB OLIC PANEL creatinine 0.80 mg/dL 0.66-1 .25 Not Available [facility] (Lab) [address] [place], [address], 02/23/2023 13:54:31 02/24/20 23 02/23/2023 COMPR EHENS RA METAB OLIC PANEL GFR >60 Refer ence Range : [place] ge GFR Healt hy Adult : >60 mL/mi n/1.7 3 m2 Chron ic Kidne y Disea se: 15-60 mL/mi n/1.7 3 m2 Kidne y Failu re: <15/m L/min /1.73 m2 www.n iddk. nih.g ov The MDRD study equat ion has not been valid ated in child marco antonio <18 years of age; pregn ant women ; the elder ly >85 years of age; or in some racia l or ethni c subgr oups, such as Hispa nics. Outsi de the valid ated gabriel eters , estim ated GFR is less accur ate, requi ring clini keith judgm ent on a case- by-ca se basis . Clini keith inter preta tion for other races and ages must be made by the clini jennifer. The MDRD study equat ion has not been valid ated for the evalu ation of serum creat inine relat ed to nutri samuel l statu s or medic ation usage . For perso ns <18 years of age, a pedia tric GFR calcu lator is avail able on the [facility] websi te: https ://cynthia w.kid ninoska.o rg/pr ofess ional s/kdo qi/gf r_cal culat or Not Available [facility] (Lab) [address] [place], [address], 02/23/2023 13:54:31 02/24/20 23 02/23/2023 COMPR EHENS RA METAB OLIC PANEL alkaline phosphatase 61 U/L 38-126 Not Available [facility] (Lab) [address] [place], [address], 02/23/2023 13:54:31 02/24/20 23 02/23/2023 COMPR EHENS RA METAB OLIC PANEL alanine aminotransfe rase 23 U/L 0-35 Not Available [facility] (Lab) [address] [place], [address], 02/23/2023 13:54:31 02/24/20 23 02/23/2023 COMPR EHENS RA METAB OLIC PANEL aspartate aminotransfe rase 27 U/L 15-37 Not Available [facility] (Lab) [address] [place], [address], 02/23/2023 13:54:31 02/24/20 23 02/23/2023 COMPR EHENS RA METAB OLIC PANEL bilirubin, total 0.60 mg/dL 0.20-1 .30 Not Available [facility] (Lab) [address] [place], [address], 02/23/2023 13:54:31 02/24/20 23 02/23/2023 COMPR EHENS RA METAB OLIC PANEL calcium 9.6 mg/dL 8.4-10 .2 Not Available [facility] (Lab) [address] [place], [address], 02/23/2023 13:54:31 02/24/20 23 02/23/2023 COMPR EHENS RA METAB OLIC PANEL total protein 7.6 g/dL 6.3-8. 2 Not Available [facility] (Lab) [address] [place], [address], 02/23/2023 13:54:31 02/24/20 23 02/23/2023 COMPR EHENS RA METAB OLIC PANEL albumin 4.7 g/dL 3.0-4. 4 high Not Available [facility] (Lab) [address] [place], [address], 02/23/2023 13:54:31 02/24/20 23 02/23/2023 COMPR EHENS RA METAB OLIC PANEL globulin 2.9 g/dL 2.6-4. 2 Not Available [facility] (Lab) [address] [place], [address], 02/23/2023 13:54:31 02/24/20 23 02/23/2023 COMPR EHENS RA METAB OLIC PANEL A/G ratio 1.6 ratio 1.0-2. 0 Not Available [facility] (Lab) [address] [place], [address], 02/23/2023 13:54:31 02/24/20 23 02/23/2023 MICRO ALBUM N RNDM W/CRE AT RATIO ur creat 51.60 mg/dL REFER ENCE RANGE NOT ESTAB LISHE D FOR RANDO M URINE CREAT ININE Not Available [facility] (Lab) [address] [place], [address], 02/23/2023 14:00:27 02/24/20 23 02/23/2023 MICRO ALBUM N RNDM W/CRE AT RATIO microalbumin , urine <6.0 mg/L 0.0-16 .6 Not Available [facility] (Lab) [address] [place], [address], 02/23/2023 14:00:27 02/24/20 23 02/23/2023 T4 FREE free T4 1.18 NG/dL 0.78-2 .19 Not Available [facility] (Lab) [address] [place], [address], 02/23/2023 14:09:27 02/24/20 23 02/23/2023 TSH thyroid-stim ulating hormone 0.485 uIU/m L 0.465- 4.680 Not Available [facility] (Lab) [address] [place], [address], 02/23/2023 14:21:17 02/24/20 23 02/23/2023 HEMOG LOBIN A1C HA1C 6.0 % 4.0-6. 0 Diabe gordon Scree keyshawn Crite bryce: <5.7% Consi stent with absen ce of diabe gordon 5.7-6 .4% Consi stent with incre ased risk for diabe gordon (pred iabet es) >OR=6 .5% Consi stent with diabe gordon REFER ENCE: Diabe gordon Care 2015, 39(Farias ppl.1 ):s13 -s22 Not Available [facility] (Lab) [address] [place], [address], 02/23/2023 20:56:36 08/24/19 24 08/24/2023 CBC/C OMPLE TE BLD COUNT W/DIF F white blood cells 7.9 x10'3 /uL 4.2-10 .8 Not Available [facility] (Lab) [address] [place], [address], 08/24/2023 13:02:25 08/24/19 24 08/24/2023 CBC/C OMPLE TE BLD COUNT W/DIF F red blood cells 4.12 x10'6 /uL 3.80-5 .20 Not Available [facility] (Lab) [address] [place], [address], 08/24/2023 13:02:25 08/24/19 24 08/24/2023 CBC/C OMPLE TE BLD COUNT W/DIF F hemoglobin 12.6 g/dL 12.0-1 5.6 Not Available [facility] (Lab) [address] [place], [address], 08/24/2023 13:02:25 08/24/19 24 08/24/2023 CBC/C OMPLE TE BLD COUNT W/DIF F hematocrit 38.1 % 35.7-4 5.7 Not Available [facility] (Lab) [address] [place], [address], 08/24/2023 13:02:25 08/24/19 24 08/24/2023 CBC/C OMPLE TE BLD COUNT W/DIF F mean red cell volume 92.5 fL 82.0-9 9.0 Not Available [facility] (Lab) [address] [place], [address], 08/24/2023 13:02:25 08/24/19 24 08/24/2023 CBC/C OMPLE TE BLD COUNT W/DIF F mean red cell hemoglobin 30.6 pg 27.0-3 3.0 Not Available [facility] (Lab) [address] [place], [address], 08/24/2023 13:02:25 08/24/19 24 08/24/2023 CBC/C OMPLE TE BLD COUNT W/DIF F mean RBC HGB concentratio n 33.1 g/dL 31.0-3 6.0 Not Available [facility] (Lab) [address] [place], [address], 08/24/2023 13:02:25 08/24/19 24 08/24/2023 CBC/C OMPLE TE BLD COUNT W/DIF F red cell distribution width 13.8 % 11.8-1 5.5 Not Available [facility] (Lab) [address] [place], [address], 08/24/2023 13:02:25 08/24/19 24 08/24/2023 CBC/C OMPLE TE BLD COUNT W/DIF F platelets 259 x10'3 /uL 150-40 0 Not Available [facility] (Lab) [address] [place], [address], 08/24/2023 13:02:25 08/24/19 24 08/24/2023 CBC/C OMPLE TE BLD COUNT W/DIF F mean platelet volume 10.3 fL 9.0-12 .4 Not Available [facility] (Lab) [address] [place], [address], 08/24/2023 13:02:25 08/24/19 24 08/24/2023 CBC/C OMPLE TE BLD COUNT W/DIF F neutrophils 57.1 % 39.0-7 2.0 Not Available [facility] (Lab) [address] [place], [address], 08/24/2023 13:02:25 08/24/19 24 08/24/2023 CBC/C OMPLE TE BLD COUNT W/DIF F lymphocytes 32.0 % 16.0-4 7.0 Not Available [facility] (Lab) [address] [place], [address], 08/24/2023 13:02:25 08/24/19 24 08/24/2023 CBC/C OMPLE TE BLD COUNT W/DIF F monocytes 8.3 % 5.0-12 .0 Not Available [facility] (Lab) [address] [place], [address], 08/24/2023 13:02:25 08/24/19 24 08/24/2023 CBC/C OMPLE TE BLD COUNT W/DIF F eosinophils 1.8 % 1.0-7. 0 Not Available [facility] (Lab) [address] [place], [address], 08/24/2023 13:02:25 08/24/19 24 08/24/2023 CBC/C OMPLE TE BLD COUNT W/DIF F basophils 0.4 % 0.0-2. 0 Not Available [facility] (Lab) [address] [place], [address], 08/24/2023 13:02:25 08/24/19 24 08/24/2023 CBC/C OMPLE TE BLD COUNT W/DIF F immature granulocytes 0.4 % 0.00-0 .50 Not Available [facility] (Lab) [address] [place], [address], 08/24/2023 13:02:25 08/24/19 24 08/24/2023 CBC/C OMPLE TE BLD COUNT W/DIF F neutrophils, absolute count 4.54 x10'3 /uL 1.5-8. 0 Not Available [facility] (Lab) [address] [place], [address], 08/24/2023 13:02:25 08/24/19 24 08/24/2023 CBC/C OMPLE TE BLD COUNT W/DIF F lymphocytes, absolute count 2.54 x10'3 /uL 1.07-3 .43 Not Available [facility] (Lab) [address] [place], [address], 08/24/2023 13:02:25 08/24/19 24 08/24/2023 CBC/C OMPLE TE BLD COUNT W/DIF F monocytes, absolute count 0.66 x10'3 /uL 0.29-0 .99 Not Available [facility] (Lab) [address] [place], [address], 08/24/2023 13:02:25 08/24/19 24 08/24/2023 CBC/C OMPLE TE BLD COUNT W/DIF F eosinophils, absolute count 0.14 x10'3 /uL 0.02-0 .53 Not Available [facility] (Lab) [address] [place], [address], 08/24/2023 13:02:25 08/24/19 24 08/24/2023 CBC/C OMPLE TE BLD COUNT W/DIF F basophils, absolute count 0.03 x10'3 /uL 0.01-0 .08 Not Available [facility] (Lab) [address] [place], [address], 08/24/2023 13:02:25 08/24/19 24 08/24/2023 CBC/C OMPLE TE BLD COUNT W/DIF F immature granulocytes ,absolute 0.03 x10'3 /uL 0.00-0 .05 Not Available [facility] (Lab) [address] [place], [address], 08/24/2023 13:02:25 08/24/19 24 08/24/2023 CBC/C OMPLE TE BLD COUNT W/DIF F nucleated red blood cells 0.0 % -0 Not Available [facility] (Lab) [address] [place], [address], 08/24/2023 13:02:25 08/24/19 24 08/24/2023 CBC/C OMPLE TE BLD COUNT W/DIF F NRBC# 0.00 x10'3 /uL Not Available [facility] (Lab) [address] [place], [address], 08/24/2023 13:02:25 08/24/19 24 08/24/2023 MICRO ALBUM N RNDM W/CRE AT RATIO ur creat 45.90 mg/dL REFER ENCE RANGE NOT ESTAB LISHE D FOR RANDO M URINE CREAT ININE Not Available [facility] (Lab) [address] [place], [address], 08/24/2023 14:33:27 08/24/19 24 08/24/2023 MICRO ALBUM N RNDM W/CRE AT RATIO microalbumin , urine <6.0 mg/L 0.0-16 .6 Not Available [facility] (Lab) [address] [place], [address], 08/24/2023 14:33:27 08/24/19 24 08/24/2023 MICRO ALBUM N RNDM W/CRE AT RATIO microalbumin /creatinine ratio 0 mcg/m g 0-29 THE [facility] CAN DIABE [facility] ASS[facility] IATIO N DEFIN ES ABNOR MALIT IES IN ALBUM IN EXCRE TION FOLLO WS: CATEG ORY RESUL T (MCG/ MG CREAT ININE ) BIBIANA L <30 MICRO ALBUM INURI A 30-29 9 CLINI KEITH ALBUM INURI A > OR = 300 THE ADA RECOM MENDS THAT 2 OF 2 SPECI MENS COLLE CTED WITHI N A 3- TO 6-MON TH PERIO D BE ABNOR MAL BEFOR E CONSI ANNETTA G A PATIE NT TO HAVE CROSS ED ONE OF THESE DIAGN OSTIC THRES HOLDS . REFER ENCE: DIABE GORDON CARE, VOL. 26: [id number] 2002 Not Available [facility] (Lab) [address] [place], [address], 08/24/2023 14:33:27 08/24/19 24 08/24/2023 LIPID PANEL cholesterol 126 mg/dL 140-19 9 low NIH YANG NSUS RECOM MENDA TION FOR BRITTNI STERO L: ADULT CHILD LOW RISK: <200 <170 BORDE RLINE : <200- 239 ----- HIGH RISK: >240 >200 Not Available [facility] (Lab) [address] [place], [address], 08/24/2023 14:59:21 08/24/19 24 08/24/2023 LIPID PANEL triglyceride s 138 mg/dL 0-150 NIH YANG NSUS REPOR T RECOM MENDA TION FOR TRIGL YCERI BECKY: ADULT CHILD LOW RISK: <150 ----- BODER LINE: 150-1 99 ----- HIGH RISK: >200 ----- Not Available [facility] (Lab) [address] [place], [address], 08/24/2023 14:59:21 08/24/19 24 08/24/2023 LIPID PANEL HDL cholesterol 58 mg/dL 40- Not Available [facility] (Lab) [address] [place], [address], 08/24/2023 14:59:21 08/24/19 24 08/24/2023 LIPID PANEL LDL cholesterol, calculated 40 mg/dL 0-130 NIH YANG NSUS REPOR T RECOM MENDA TIONS FOR LDL: ADULT CHILD LOW RISK <130 <110 (OPTI MAL LDL) <100 ----- BORDE RLINE : 130-1 59 ----- HIGH RISK: >160 >130 A TRIGL YCERI DE RESUL T >400 INVAL IDATE S THE CALCU LATIO N FOR LDL FRACT IONAT ION - THE LDL RESUL T WILL NOT BE REPOR MARILU. Not Available [facility] (Lab) [address] [place], [address], 08/24/2023 14:59:21 08/24/19 24 08/24/2023 COMPR EHENS RA METAB OLIC PANEL sodium 136 mmol/ L 137-14 5 low Not Available [facility] (Lab) [address] [place], [address], 08/24/2023 14:59:36 08/24/19 24 08/24/2023 COMPR EHENS RA METAB OLIC PANEL potassium 4.3 mmol/ L 3.5-5. 1 Not Available [facility] (Lab) [address] [place], [address], 08/24/2023 14:59:36 08/24/19 24 08/24/2023 COMPR EHENS RA METAB OLIC PANEL chloride 100 mmol/ L 98-107 Not Available [facility] (Lab) [address] [place], [address], 08/24/2023 14:59:36 08/24/19 24 08/24/2023 COMPR EHENS RA METAB OLIC PANEL carbon dioxide 31 mmol/ L 22-30 high Not Available [facility] (Lab) [address] [place], [address], 08/24/2023 14:59:36 08/24/19 24 08/24/2023 COMPR EHENS RA METAB OLIC PANEL anion gap 9.3 mmol/ L 14-22 low Not Available [facility] (Lab) [address] [place], [address], 08/24/2023 14:59:36 08/24/19 24 08/24/2023 COMPR EHENS RA METAB OLIC PANEL glucose 96 mg/dL 70-99 Not Available [facility] (Lab) [address] [place], [address], 08/24/2023 14:59:36 08/24/19 24 08/24/2023 COMPR EHENS RA METAB OLIC PANEL BUN 14 mg/dL 8-19 Not Available [facility] (Lab) [address] [place], [address], 08/24/2023 14:59:36 08/24/19 24 08/24/2023 COMPR EHENS RA METAB OLIC PANEL creatinine 0.82 mg/dL 0.66-1 .25 Not Available [facility] (Lab) [address] [place], [address], 08/24/2023 14:59:36 08/24/19 24 08/24/2023 COMPR EHENS RA METAB OLIC PANEL GFR >60 Refer ence Range : [place] ge GFR Healt hy Adult : >60 mL/mi n/1.7 3 m2 Chron ic Kidne y Disea se: 15-60 mL/mi n/1.7 3 m2 Kidne y Failu re: <15/m L/min /1.73 m2 www.n iddk. nih.g ov The MDRD study equat ion has not been valid ated in child marco antonio <18 years of age; pregn ant women ; the elder ly >85 years of age; or in some racia l or ethni c subgr oups, such as Hispa nics. Outsi de the valid ated gabriel eters , estim ated GFR is less accur ate, requi ring clini keith judgm ent on a case- by-ca se basis . Clini keith inter preta tion for other races and ages must be made by the clini jennifer. The MDRD study equat ion has not been valid ated for the evalu ation of serum creat inine relat ed to nutri samuel l statu s or medic ation usage . For perso ns <18 years of age, a pedia tric GFR calcu lator is avail able on the [facility] websi te: https ://cynthia xiao.wilberto lou/demetrius fragosoal s/kdo qi/gf r_cal culat or Not Available [facility] (Lab) [address] [place], [address], 08/24/2023 14:59:36 08/24/19 24 08/24/2023 COMPR EHENS RA METAB OLIC PANEL alkaline phosphatase 56 U/L 38-126 Not Available [facility] (Lab) [address] [place], [address], 08/24/2023 14:59:36 08/24/19 24 08/24/2023 COMPR EHENS RA METAB OLIC PANEL alanine aminotransfe rase 25 U/L 0-35 Not Available [facility] (Lab) [address] [place], [address], 08/24/2023 14:59:36 08/24/19 24 08/24/2023 COMPR EHENS RA METAB OLIC PANEL aspartate aminotransfe rase 32 U/L 15-37 Not Available [facility] (Lab) [address] [place], [address], 08/24/2023 14:59:36 08/24/19 24 08/24/2023 COMPR EHENS RA METAB OLIC PANEL bilirubin, total 0.70 mg/dL 0.20-1 .30 Not Available [facility] (Lab) [address] [place], [address], 08/24/2023 14:59:36 08/24/19 24 08/24/2023 COMPR EHENS RA METAB OLIC PANEL calcium 9.6 mg/dL 8.4-10 .2 Not Available [facility] (Lab) [address] [place], [address], 08/24/2023 14:59:36 08/24/19 24 08/24/2023 COMPR EHENS RA METAB OLIC PANEL total protein 7.5 g/dL 6.3-8. 2 Not Available [facility] (Lab) [address] [place], [address], 08/24/2023 14:59:36 08/24/19 24 08/24/2023 COMPR EHENS RA METAB OLIC PANEL albumin 4.6 g/dL 3.0-4. 4 high Not Available [facility] (Lab) [address] [place], [address], 08/24/2023 14:59:36 08/24/19 24 08/24/2023 COMPR EHENS RA METAB OLIC PANEL globulin 2.9 g/dL 2.6-4. 2 Not Available [facility] (Lab) [address] [place], [address], 08/24/2023 14:59:36 08/24/19 24 08/24/2023 COMPR EHENS RA METAB OLIC PANEL A/G ratio 1.6 ratio 1.0-2. 0 Not Available [facility] (Lab) [address] [place], [address], 08/24/2023 14:59:36 08/24/19 24 08/24/2023 T4 FREE free T4 1.23 NG/dL 0.78-2 .19 Not Available [facility] (Lab) [address] [place], [address], 08/24/2023 15:17:11 08/24/19 24 08/24/2023 TSH thyroid-stim ulating hormone 0.283 uIU/m L 0.465- 4.680 low Not Available [facility] (Lab) [address] [place], [address], 08/24/2023 15:51:29 08/24/19 24 08/24/2023 HEMOG LOBIN A1C HA1C 5.8 % 4.0-6. 0 Diabe gordon Scree keyshawn Crite bryce: <5.7% Consi stent with absen ce of diabe gordon 5.7-6 .4% Consi stent with incre ased risk for diabe gordon (pred iabet es) >OR=6 .5% Consi stent with diabe gordon REFER ENCE: Diabe gordon Care 2016, 39(Farias ppl.1 ):s13 -s22 Not Available [facility] (Lab) [address] [place], [address], 08/24/2023 20:50:30 02/21/20 24 02/21/2024 CBC/C OMPLE TE BLD COUNT W/DIF F white blood cells 7.7 x10'3 /uL 4.2-10 .8 Not Available [facility] (Lab) [address] [place], [address], 02/21/2024 12:51:07 02/21/20 24 02/21/2024 CBC/C OMPLE TE BLD COUNT W/DIF F red blood cells 4.11 x10'6 /uL 3.80-5 .20 Not Available [facility] (Lab) [address] [place], [address], 02/21/2024 12:51:07 02/21/20 24 02/21/2024 CBC/C OMPLE TE BLD COUNT W/DIF F hemoglobin 12.6 g/dL 12.0-1 5.6 Not Available [facility] (Lab) [address] [place], [address], 02/21/2024 12:51:07 02/21/2002/21/2024 CBC/C OMPLE TE BLD COUNT W/DIF F hematocrit 38.3 % 35.7-4 5.7 Not Available [facility] (Lab) [address] [place], [address], 02/21/2024 12:51:07 02/21/2002/21/2024 CBC/C OMPLE TE BLD COUNT W/DIF F mean red cell volume 93.2 fL 82.0-9 9.0 Not Available [facility] (Lab) [address] [place], [address], 02/21/2024 12:51:07 02/21/2002/21/2024 CBC/C OMPLE TE BLD COUNT W/DIF F mean red cell hemoglobin 30.7 pg 27.0-3 3.0 Not Available [facility] (Lab) [address] [place], [address], 02/21/2024 12:51:07 02/21/2002/21/2024 CBC/C OMPLE TE BLD COUNT W/DIF F mean RBC HGB concentratio n 32.9 g/dL 31.0-3 6.0 Not Available [facility] (Lab) [address] [place], [address], 02/21/2024 12:51:07 02/21/20 24 02/21/2024 CBC/C OMPLE TE BLD COUNT W/DIF F red cell distribution width 13.7 % 11.8-1 5.5 Not Available [facility] (Lab) [address] [place], [address], 02/21/2024 12:51:07 02/21/20 24 02/21/2024 CBC/C OMPLE TE BLD COUNT W/DIF F platelets 296 x10'3 /uL 150-40 0 Not Available [facility] (Lab) [address] [place], [address], 02/21/2024 12:51:07 02/21/20 24 02/21/2024 CBC/C OMPLE TE BLD COUNT W/DIF F mean platelet volume 10.1 fL 9.0-12 .4 Not Available [facility] (Lab) [address] [place], [address], 02/21/2024 12:51:07 02/21/20 24 02/21/2024 CBC/C OMPLE TE BLD COUNT W/DIF F neutrophils 57.7 % 39.0-7 2.0 Not Available [facility] (Lab) [address] [place], [address], 02/21/2024 12:51:07 02/21/20 24 02/21/2024 CBC/C OMPLE TE BLD COUNT W/DIF F lymphocytes 30.4 % 16.0-4 7.0 Not Available [facility] (Lab) [address] [place], [address], 02/21/2024 12:51:07 02/21/20 24 02/21/2024 CBC/C OMPLE TE BLD COUNT W/DIF F monocytes 8.6 % 5.0-12 .0 Not Available [facility] (Lab) [address] [place], [address], 02/21/2024 12:51:07 02/21/20 24 02/21/2024 CBC/C OMPLE TE BLD COUNT W/DIF F eosinophils 2.5 % 1.0-7. 0 Not Available [facility] (Lab) [address] [place], [address], 02/21/2024 12:51:07 02/21/20 24 02/21/2024 CBC/C OMPLE TE BLD COUNT W/DIF F basophils 0.5 % 0.0-2. 0 Not Available [facility] (Lab) [address] [place], [address], 02/21/2024 12:51:07 02/21/20 24 02/21/2024 CBC/C OMPLE TE BLD COUNT W/DIF F immature granulocytes 0.3 % 0.00-0 .50 Not Available [facility] (Lab) [address] [place], [address], 02/21/2024 12:51:07 02/21/20 24 02/21/2024 CBC/C OMPLE TE BLD COUNT W/DIF F neutrophils, absolute count 4.46 x10'3 /uL 1.5-8. 0 Not Available [facility] (Lab) [address] [place], [address], 02/21/2024 12:51:07 02/21/20 24 02/21/2024 CBC/C OMPLE TE BLD COUNT W/DIF F lymphocytes, absolute count 2.34 x10'3 /uL 1.07-3 .43 Not Available [facility] (Lab) [address] [place], [address], 02/21/2024 12:51:07 02/21/20 24 02/21/2024 CBC/C OMPLE TE BLD COUNT W/DIF F monocytes, absolute count 0.66 x10'3 /uL 0.29-0 .99 Not Available [facility] (Lab) [address] [place], [address], 02/21/2024 12:51:07 02/21/20 24 02/21/2024 CBC/C OMPLE TE BLD COUNT W/DIF F eosinophils, absolute count 0.19 x10'3 /uL 0.02-0 .53 Not Available [facility] (Lab) [address] [place], [address], 02/21/2024 12:51:07 02/21/20 24 02/21/2024 CBC/C OMPLE TE BLD COUNT W/DIF F basophils, absolute count 0.04 x10'3 /uL 0.01-0 .08 Not Available [facility] (Lab) [address] [place], [address], 02/21/2024 12:51:07 02/21/20 24 02/21/2024 CBC/C OMPLE TE BLD COUNT W/DIF F immature granulocytes ,absolute 0.02 x10'3 /uL 0.00-0 .05 Not Available [facility] (Lab) [address] [place], [address], 02/21/2024 12:51:07 02/21/20 24 02/21/2024 CBC/C OMPLE TE BLD COUNT W/DIF F nucleated red blood cells 0.0 % -0 Not Available [facility] [facility] ([facility] [address] [place], [address], 02/21/2024 12:51:07 02/21/20 24 02/21/2024 CBC/C OMPLE TE BLD COUNT W/DIF F NRBC# 0.00 x10'3 /uL Not Available [facility] (Lab) [address] [place], [address], 02/21/2024 12:51:07 02/21/20 24 02/21/2024 COMPR EHENS RA METAB OLIC PANEL sodium 134 mmol/ L 137-14 5 low Not Available [facility] (Lab) [address] [place], [address], 02/21/2024 13:24:36 02/21/20 24 02/21/2024 COMPR EHENS RA METAB OLIC PANEL potassium 4.7 mmol/ L 3.5-5. 1 Not Available [facility] (Lab) [address] [place], [address], 02/21/2024 13:24:36 02/21/20 24 02/21/2024 COMPR EHENS RA METAB OLIC PANEL chloride 99 mmol/ L 98-107 Not Available [facility] (Lab) [address] [place], [address], 02/21/2024 13:24:36 02/21/20 24 02/21/2024 COMPR EHENS RA METAB OLIC PANEL carbon dioxide 29 mmol/ L 22-30 Not Available [facility] (Lab) [address] [place], [address], 02/21/2024 13:24:36 02/21/20 24 02/21/2024 COMPR EHENS RA METAB OLIC PANEL anion gap 10.7 mmol/ L 14-22 low Not Available [facility] (Lab) [address] [place], [address], 02/21/2024 13:24:36 02/21/20 24 02/21/2024 COMPR EHENS RA METAB OLIC PANEL glucose 95 mg/dL 70-99 Not Available [facility] (Lab) [address] [place], [address], 02/21/2024 13:24:36 02/21/20 24 02/21/2024 COMPR EHENS RA METAB OLIC PANEL BUN 18 mg/dL 8-19 Not Available [facility] (Lab) [address] [place], [address], 02/21/2024 13:24:36 02/21/20 24 02/21/2024 COMPR EHENS RA METAB OLIC PANEL creatinine 0.90 mg/dL 0.66-1 .25 Not Available [facility] (Lab) [address] [place], [address], 02/21/2024 13:24:36 02/21/20 24 02/21/2024 COMPR EHENS RA METAB OLIC PANEL GFR 60 Refer ence Range : [place] ge GFR Healt hy Adult : >60 mL/mi n/1.7 3 m2 Chron ic Kidne y Disea se: 15-60 mL/mi n/1.7 3 m2 Kidne y Failu re: <15/m L/min /1.73 m2 www.n iddk. nih.g ov The MDRD study equat ion has not been valid ated in child marco antonio <18 years of age; pregn ant women ; the elder ly >85 years of age; or in some racia l or ethni c subgr oups, such as Hispa nics. Outsi de the valid ated gabriel eters , estim ated GFR is less accur ate, requi ring clini keith judgm ent on a case- by-ca se basis . Clini keith inter preta tion for other races and ages must be made by the clini jennifer. The MDRD study equat ion has not been valid ated for the evalu ation of serum creat inine relat ed to nutri samuel l statu s or medic ation usage . For perso ns <18 years of age, a pedia tric GFR calcu lator is avail able on the F websi te: https ://ww w.kid ninoska.o rg/pr ofess ional s/kdo qi/gf r_cal culat or Not Available [facility] (Lab) [address] [place], [address], 02/21/2024 13:24:36 02/21/2002/21/2024 COMPR EHENS RA METAB OLIC PANEL alkaline phosphatase 64 U/L 38-126 Not Available [facility] (Lab) [address] [place], [address], 02/21/2024 13:24:36 02/21/20 24 02/21/2024 COMPR EHENS RA METAB OLIC PANEL alanine aminotransfe rase 25 U/L 0-35 Not Available [facility] (Lab) [address] [place], [address], 02/21/2024 13:24:36 02/21/20 24 02/21/2024 COMPR EHENS RA METAB OLIC PANEL aspartate aminotransfe rase 38 U/L 15-37 high Not Available [facility] (Lab) [address] [place], [address], 02/21/2024 13:24:36 02/21/20 24 02/21/2024 COMPR EHENS RA METAB OLIC PANEL bilirubin, total 0.80 mg/dL 0.20-1 .30 Not Available [facility] (Lab) [address] [place], [address], 02/21/2024 13:24:36 02/21/20 24 02/21/2024 COMPR EHENS RA METAB OLIC PANEL calcium 9.3 mg/dL 8.4-10 .2 Not Available [facility] (Lab) [address] [place], [address], 02/21/2024 13:24:36 02/21/20 24 02/21/2024 COMPR EHENS RA METAB OLIC PANEL total protein 7.1 g/dL 6.3-8. 2 Not Available [facility] (Lab) [address] [place], [address], 02/21/2024 13:24:36 02/21/20 24 02/21/2024 COMPR EHENS RA METAB OLIC PANEL albumin 4.6 g/dL 3.0-4. 4 high Not Available [facility] (Lab) [address] [place], [address], 02/21/2024 13:24:36 02/21/20 24 02/21/2024 COMPR EHENS RA METAB OLIC PANEL globulin 2.5 g/dL 2.6-4. 2 low Not Available [facility] (Lab) [address] [place], [address], 02/21/2024 13:24:36 02/21/20 24 02/21/2024 COMPR EHENS RA METAB OLIC PANEL A/G ratio 1.8 ratio 1.0-2. 0 Not Available [facility] (Lab) [address] [place], [address], 02/21/2024 13:24:36 02/21/2002/21/2024 LIPID PANEL cholesterol 147 mg/dL 140-19 9 NIH YANG NSUS RECOM MENDA TION FOR BRITTNI STERO L: ADULT CHILD LOW RISK: <200 <170 BORDE RLINE : <200- 239 ----- HIGH RISK: >240 >200 Not Available [facility] (Lab) [address] [place], [address], 02/21/2024 13:24:46 02/21/2002/21/2024 LIPID PANEL triglyceride s 191 mg/dL 0-150 high NIH YANG NSUS REPOR T RECOM MENDA TION FOR TRIGL YCERI BECKY: ADULT CHILD LOW RISK: <150 ----- BODER LINE: 150-1 99 ----- HIGH RISK: >200 ----- Not Available [facility] (Lab) [address] [place], [address], 02/21/2024 13:24:46 02/21/2002/21/2024 LIPID PANEL HDL cholesterol 49 mg/dL 40- Not Available [facility] (Lab) [address] [place], [address], 02/21/2024 13:24:46 02/21/20 24 02/21/2024 LIPID PANEL LDL cholesterol, calculated 60 mg/dL 0-130 NIH YANG NSUS REPOR T RECOM MENDA TIONS FOR LDL: ADULT CHILD LOW RISK <130 <110 (OPTI MAL LDL) <100 ----- BORDE RLINE : 130-1 59 ----- HIGH RISK: >160 >130 A TRIGL YCERI DE RESUL T >400 INVAL IDATE S THE CALCU LATIO N FOR LDL FRACT IONAT ION - THE LDL RESUL T WILL NOT BE REPOR MARILU. Not Available [facility] (Lab) [address] [place], [address], 02/21/2024 13:24:46 02/21/2002/27/2024 HA1C, SEND- OUT TO LABCO RP hemoglobin A1C 6.1 % 4.8-5. 6 high . . Predi abete s: 5.7 - 6.4 Diabe gordon: >6.4 Glyce cynthia contr ol for adult s with diabe gordon: <7.0 Perfo rmed at: [place] [id number] Lab Direc tor: Jerald marina PhD, Phone : [phone] Not Available [facility] (Lab) [address] [place], [address], 02/27/2024 06:14:33 02/28/20 24 02/28/2024 OSMOL ALITY URINE ur osmol 545 mosmo l/k 50-120 0 Not Available [facility] (Lab) [address] [place], [address], 02/28/2024 14:27:35 02/28/2002/28/2024 OSMOL ALITY URINE confirm 543 mosmo l/k 50-120 0 Not Available [facility] (Lab) [address] [place], [address], 02/28/2024 14:27:35 02/28/20 24 02/28/2024 OSMOL ALITY SERUM serum osmolality 283 mosmo l/kg 280-30 1 Not Available [facility] (Lab) [address] [place], [address], 02/28/2024 14:27:50 02/28/20 24 02/28/2024 OSMOL ALITY SERUM confirm 283 mosmo l/k 275-29 5 Not Available [facility] (Lab) [address], [place], [address], 02/28/2024 14:27:50 03/06/20 23 DEXA, axial skele ton [facility] [address], [place] [address] Patien t Name: CHANTEL ATWOOD Access ion #: [id number] Sex: F : 1944 1 Dictat ed By: Grecia jorge Attend ing Physic hi: MORGAN LUX CE Orderi Physic hi: MORGAN LUX CE Exam Date: 2022 09:42 AM Exam Name: XR DEXA AXIAL/ HIP/PE LVIS/S PINE Admitt ing Diagno sis(es ): CLINIC AL HISTOR Y: Postme nopaus al screen ing for osteop orosis . TECHNI QUE: The study was perfor med using a [employer]. Lumbar spine and proxim al femora l evalua tions were evalua marilu in the fronta l projec tions. COMPAR JORDAN: Prior DEXA scan dated 020. FINDIN GS: L1-L4 demons trates a bone minera l densit y of 1.344 g/cm2 with a T-scor e of 1.2, within normal limits . There has been an interv al 2.5% increa se in bone minera l densit y in the lumbar spine compar ed to the prior exam. Left femora l neck evalua tion demons trates a bone minera l densit y of 0.931 g/cm2 with a T-scor e of -0.8, within normal limits . Right femora l neck evalua tion demons trates a bone minera l densit y of 0.971 g/cm2 with a T-scor e of -0.5 within normal limits . There has been a 2.7% interv al decrea se in bone minera l densit y in the total mean proxim al femora compar ed to the prior exam. IMPRES KINGA: Bone minera l densit y is within the range of normal as detail ed above. Electr onical ly Signed by: Grecia jorge at 2022 10:53: 58 AM Page 1 [email or web address] [facility] (Imaging) [address] [facility], [place], [address], 03/06/2023 12:29:22 03/06/20 23 MAMMO , scree keyshawn, digit al, bilat eral [facility] [address] [facility], [place] [address] Patien t Name: CHANTEL ATWOOD Access ion #: [id number] Sex: F : 1944 1 Dictat ed By: Stacy Ball Attend ing Physic hi: MORGAN LUX CE Orderi ng Physic hi: MORGAN LUX CE Exam Date: 2022 09:42 AM Exam Name: MG DIGITA L AZALEA BILAT SCREEN Admitt ing Diagno sis(es ): CLINIC AL HISTOR Y: Screen ing COMPAR JORDAN STUDY: None TECHNI QUE: Using a full field digita l 2D mammog roselyn unit CC and MLO views of both breast s are perfor med. FINDIN GS: BREAST COMPOS ITION: The bilate ral breast s are hetero geneou sly dense, which may obscur e small masses . There is a mass in the left breast at 12:00. No suspic ious masses , todd ectura l distor tion, asymme tries or suspic ious calcif icatio ns in the right breast . IMPRES KINGA: Mass in the left breast at 12:00 requir es additi onal imagin g evalua tion. Recomm end diagno stic left breast mammog hema (left true latera l, left spot compre ssion MLO, left spot compre ssion CC) and left breast ultras ound. BIRADS : 0 - Incomp lete - Need additi onal imagin g evalua tion and/or prior mammog pelon for compar jordan Electr onical ly Signed by: Stacy Ball at 2022 10:55: 38 AM Page 1 [facility] (Imaging) [address] [place], [address], 03/06/2023 12:29:48 03/06/20 23 MAMMO , scree keyshawn, digit al, bilat eral [facility] [address] [facility] [address], [place] [address] Patien t Name: CHANTEL ATWOOD Access ion #: [id number] Sex: F : 1944 1 Dictat ed By: Stacy Ball Attend ing Physic hi: MORGAN LUX CE Orderi ng Physic hi: MORGAN LUX CE Exam Date: 2022 09:42 AM Exam Name: MG DIGITA L AZALEA BILAT SCREEN Admitt ing Diagno sis(es ): ADDEND UM #1 Compar jordan exams have now become availa ble from 02/16/20 21, 02/13/20 20 and 019. The mass in the left breast at 12:00 is stable compar ed to prior exams and is benign . BI-RAD S 2: benign Return to annual screen ing mammog hema. Electr onical ly Signed by: Stacy Ball at 2022 13:31: 03 PM ORIGIN AL REPORT CLINIC AL HISTOR Y: Screen ing COMPAR JORDAN STUDY: None TECHNI QUE: Using a full field digita l 2D mammog roselyn unit CC and MLO views of both breast s are perfor med. FINDIN GS: BREAST COMPOS ITION: The bilate ral breast s are hetero geneou sly dense, which may obscur e small masses . There is a mass in the left breast at 12:00. No suspic ious masses , todd ectura l distor tion, asymme tries or suspic ious calcif icatio ns in the right breast . IMPRES KINGA: Mass in the left breast at 12:00 requir es additi onal imagin g evalua tion. Page 1 [facility] [address] [place] [address] Patisarai t Name: CHANTEL ATWOOD Access ion #: [id number] Sex: F : 1944 1 Dictat ed By: Stacy Ball Attend ing Physic hi: VONDA OSWALD Orderi ng Physic hi: MORGAN LUX Exam Date: 2022 09:42 AM Exam Name: MG DIGITA L AZALEA BILAT SCREEN Admitt ing Diagno sis(es ): Recomm end diagno stic left breast mammog hema (left true latera l, left spot compre ssion MLO, left spot compre ssion CC) and left breast ultras ound. BIRADS : 0 - Incomp lete - Need additi onal imagin g evalua tion and/or prior mammog pelon for compar jordan Electr onical ly Signed by: Stacy Ball at 2022 13:31: 03 PM Page [address] (Imaging) [address] [place], [address], 03/06/2023 14:36:55 Result Notes None recorded. Problems Name Problem SNOMED Code Status Onset Date Resolution Date Notes Provider Name and Address Organization Details Recorded Time Anxiety disorder 263986423 Active 2018 Not Available [employer] 3 20:48:10 Gastroesophag eal reflux disease 929680014 Active Not Available [employer] 3 20:48:10 Pure hypercholeste rolemia 501115940 Active Not Available [employer] 3 20:48:10 Low back strain 207005417 Active 2021 Not Available [facility] 3 20:48:10 Postartificia l menopausal syndrome 28271132 Active Not Available [employer] 3 20:48:10 Vitamin D deficiency 49166913 Active 03/18/ 2022 Not Available [employer] 3 20:48:10 Depressive disorder 11798557 Active 2018 Not Available [facility] 3 20:48:10 Hypothyroidis m 25900105 Active Not Available [facility] 3 20:48:10 Type 2 diabetes mellitus 33216074 Active Not Available [facility] 3 20:48:10 Essential hypertension 54208732 Active 2021 Not Available [facility] 3 20:48:10 Increased liver function 94622278 Active Not Available [facility] 3 20:48:10 Cough 25850340 Active 2022 Not Available [facility] 3 20:48:10 Senile osteoporosis 71830281 Active 2022 Not Available [facility] 3 20:48:10 Mammography abnormal 599035821 Active 2022 Not Available [facility] 3 20:48:10 Type 2 diabetes mellitus without complication 095923049 Active 2023 Loly Kirk null, [facility] [email or web address] [facility] 4 10:30:02 Hyponatremia 78335997 Active 2023 Bing Cleveland CMA [facility], [facility] [email or web address] [facility] 4 10:54:26 Problem Notes None recorded. Procedures Surgical History None recorded. Imaging Results Imaging Date Name Status [facility]Modified by [facility] Details LastModified Time 03/06/2023 DEXA, axial skeleton completed [address] (Imaging) [address] [place], [address], 03/06/2023 12:29:22 03/06/2023 MAMMO, screening, digital, bilateral completed [address] (Imaging) [address] [place], [address], 03/06/2023 12:29:48 03/06/2023 MAMMO, screening, digital, bilateral completed [address] (Imaging) [address] [place], [address], 03/06/2023 14:36:55 Procedure Notes None recorded. Medical Equipment None Reported. Allergies Allergen ID Allergen Name Allergen Category Reaction Reaction Severity Criticality Documentation Date Start Date Code Code System Note Provider Name and Address Organization Details Recorded Time 23023 Substance with sulfonami de structure and antibacte rial mechanism of action (substanc e) medicatio n rash Not available Not available 08/09/2022 [id number] SNOMED Not Available [facility] 3 15:28:07 Medications Name Sig Start Date [...] and Address Organization Details Last Updated DateTime 3 157.48 cm 24.3 kg/m2 51918.7 9 g 88 /min 97.2 [degF] 96 % 96 % 138 mm[Hg] 82 mm[Hg] Holly Walden [employer] 3 11:16:10 Date Recorded Body height Body weight Body temperature Heart rate Oxygen saturation Oxygen saturation in Arterial blood by Pulse oximetry Systolic blood pressure Diastolic blood pressure Provider Name and Address Organization Details Last Updated DateTime 3 157.48 cm 71352.7 5 g 97.5 [degF] 84 /min 98 % 98 % 140 mm[Hg] 84 mm[Hg] Evelia June [place] [employer] [facility] [employer] 3 10:46:31 Date Recorded Body height Body mass index (BMI) Body weight Heart rate Body temperature Oxygen saturation Oxygen saturation in Arterial blood by Pulse oximetry Systolic blood pressure Diastolic blood pressure Provider Name and Address Organization Details Last Updated DateTime 4 157.48 cm 25.8 kg/m2 49815.5 2 g 76 /min 97 [degF] 96 % 96 % 138 mm[Hg] 72 mm[Hg] Holly Walden [employer] 4 11:03:59 Date Recorded Body height Body mass index (BMI) Body weight Heart rate Body temperature Oxygen saturation Oxygen saturation in Arterial blood by Pulse oximetry Systolic blood pressure Diastolic blood pressure Provider Name and Address Organization Details Last Updated DateTime 4 157.48 cm 25.2 kg/m2 30487.7 5 g 83 /min 97.9 [degF] 97 % 97 % 118 mm[Hg] 72 mm[Hg] CROW Syed [employer] [facility] [employer] 4 10:25:33 Date Recorded Body height Body mass index (BMI) Body weight Heart rate Body temperature Oxygen saturation Oxygen saturation in Arterial blood by Pulse oximetry Systolic blood pressure Diastolic blood pressure Provider Name and Address Organization Details Last Updated DateTime 5 157.48 cm 26.3 kg/m2 31634.3 g 89 /min 97 [degF] 97 % 97 % 122 mm[Hg] 74 mm[Hg] Holly Win JARRELL [employer] 5 10:29:39 Social History Question Answer Notes LastModified by Organizat ion Details LastModified Time In The 14 Days Before Symptom Onset, Have You Had Close Contact With A Laboratory-confirme d COVID-19 While That Case Was Ill? No [id number] Information not available 08/09/2022 In The 14 Days Before Symptom Onset, Have You Had Close Contact With A Person Who Is Under Investigation For COVID-19 While That Person Was Ill? No [id number] Information not available 08/09/2022 Have You Recently Traveled Abroad? No [id number] Information not available 08/09/2022 Sex: Unknown Functional [...] 1 N POLIO N LUNG DISEASE/DISORDER N COPD N RADIATION / CHEMOTHERAPY N Other # 2 N BLOOD DISEASES N SURGERY N EAR OR HEARING PROBLEMS N MUMPS N DEPRESSION (INCLUDING POST ) Y BOWEL PROBLEMS N STROKE/TIA N ULCERS N BENIGN PROSTATIC HYPERPLASIA N MEASLES N MYOCARDIAL INFARCTION N OBESITY N GERD/NAUSEA Y ANEURYSM N URINARY/BLADDER/KIDNEY PROBLEMS N CORONARY ARTERY DISEASE (CAD) N INPATIENT PSYCH CARE N ADDICTION CONCERNS N Impotence N ENDOMETRIOSIS N USE OF BLOOD THINNERS N SKIN [...] APNEA N CHICKENPOX N INFECTIOUS DISEASE N PROSTATE N HEART ARRHYTHMIA N INSOMNIA N HIGH CHOLESTEROL / HYPERLIPIDEMIA Y EYE PROBLEMS N HYPERTHYROIDISM N NEUROLOGICAL PROBLEMS N EDEMA N CHRONIC PAIN SYNDROME N HYPOTHYROIDISM Y CAROTID BLOCKAGE N CONSTIPATION N BACK / NECK PROBLEMS N HAVE YOU BEEN HOSPITALIZED OR SEEN IN [facility] ER IN THE PAST YEAR ? N ATHEROSCLEROSIS N BREAST PROBLEMS N DIALYSIS N ECZEMA N OSTEOPOROSIS N ARTHRITIS N NO SIGNIFICANT PAST MEDICAL HISTORY N APPENDICITIS N DIABETES, TYPE Y BAD TEETH N ENT N HEARTBURN / REFLUX N AUTISM SPECTRUM DISORDER (ASD) N HEPATITIS / LIVER DISEASE N PULMONARY DISEASE N GOUT N SLEEP DISORDER N ALZHEIMER'S DISEASE N Brain Problems N DEMENTIA N HERPES N SEIZURES/EPILEPSY N HEADACHES/MIGRAINES N VASCULAR DISEASE N PACEMAKER N Blood Disorder N DIZZINESS N HEART DISEASE/HEART PROBLEMS N KIDNEY DISEASE N MULTIPLE SCLEROSIS N CANCER: SPECIFY N CARDIAC ARRHYTHMIA N ANESTHESIA COMPLICATIONS N ATRIAL FIBRILLATION N Gall Stones N PULMONARY EMBOLISM N AUTOIMMUNE DISEASE N Gynecological HistoryNo gynecological history recorded. Obstetrics History GPAL:G 0 P 0 0 0 0 Immunizations Vaccine Type Date Status Note Provider [facility] e and Address Organization Details Recorded Time Respiratory syncytial virus (RSV) MAB, unspecified 3 completed Holly cisnerosReferralMD [facility] [employer] 04/19/2023 16:29:34 Influenza, high-dose, trivalent, PF 4 completed CROW Syed, [facility] [employer] [facility] 03/13/2024 17:34:10 influenza, unspecified formulation 8 completed Not Available [facility] 08/09/2022 15:27:57 Influenza, high-dose, trivalent, PF 7 completed Not Available [facility] 08/09/2022 15:27:57 Influenza, high-dose, trivalent, PF 3 completed Not Available [facility] 08/09/2022 15:27:57 SARS-COV-2 (COVID-19) vaccine, UNSPECIFIED 1 completed Not Available [facility] 08/09/2022 15:27:57 SARS-COV-2 (COVID-19) vaccine, UNSPECIFIED 1 completed Not Available [facility] 08/09/2022 15:27:57 Pneumococcal conjugate PCV 13 5 completed Not Available [facility] 08/09/2022 15:27:57 Past Encounters Encounter ID Performer Location Encounter Start Date Encounter Closed Date Diagnosis/Indication Diagnosis SNOMED-CT Code Diagnosis ICD10 Code Diagnosis Note [id number] [facility] Internal Med [place] [address] [place] [address] [place] [address] 08/27/2020 00:00:00 08/27/2020 11:04:10 [id number] [facility] Internal [place] [address] [place] [address] [place] [address] 02/25/2021 00:00:00 02/25/2021 11:14:00 [id number] [facility] Internal Med [place] [address] [place] [address] y , [place] [address] 08/26/2021 00:00:00 08/26/2021 11:25:30 [id number] [facility] Internal Med [place] [address] [place] [address] y , [place] [address] 02/24/2022 00:00:00 02/24/2022 11:21:28 [id number] Peter Lux MD [facility] Internal Med [place] [address] [place] [address] [place] [address] 08/25/2022 10:47:13 08/25/2022 11:47:21 Essential hypertension 38348215 I10 Pure hypercholesterolemia 383644911 E78.00 Type 2 rosario betes mellitus 83652252 E11.9 Hypothyroidism 21751747 E03.9 [id number] Peter Lux MD [facility] Internal Med [place] [address] [place] [address] [place] [address] 02/23/2023 10:34:38 02/23/2023 11:06:00 Essential hypertension 30660132 I10 Hypothyroidism 38961185 E03.9 Pure hypercholesterolemia 603407583 E78.00 Type 2 rosario betes mellitus 53875425 E11.9 [id number] Peter Lux MD [facility] Internal Med [place] [address] [place] [address] [place] [address] 08/24/2023 10:52:47 08/24/2023 11:32:55 Pure hypercholesterolemia 373330163 E78.00 Essential hypertension 91066178 I10 Hypothyroidism 89162894 E03.9 Type 2 rosario betes mellitus 44333265 E11.9 Depressive disorder 3548 9007 F32.A [id number] Peter Lux MD [facility] Internal Med [facility] [address] [place] [address] , [place] [address] 02/21/2024 10:19:12 02/21/2024 14:42:28 Essential hypertension 95801045 I10 Pure hypercholesterolemia 648644829 E78.00 Type 2 rosario betes mellitus 46847092 E11.9 Hypothyroidism 13044314 E03.9 Depressive disorder 3548 9007 F32.A [id number] Peter Lux MD [facility] Primary Care [facility] [address] [facility] [address] [place] [address] 08/21/2024 10:03:42 08/21/2024 11:07:39 Essential hypertension 21637098 I10 Hypothyroidism 34397745 E03.9 Pure hypercholesterolemia 600633763 E78.00 Anxiety disorder 3772616 06 F41.9 Type 2 rosario betes mellitus without complication 800904370 E11.9 Vitamin D deficiency 347 52001 E55.9 Health Concerns Section Related Observation LastModified by Organization Detai ls LastModified Time None Recorded Concern Status LastModified by Organization Details LastModified Time None Recorded Advance Directives Directive None Recorded Payers Encounter Date Sequence Insurance Name Policy Number Policy Jacob Covered Member ID Jacob Member ID Guarantor Name 08/25/2022 1 [facility] (MEDICARE REPLACEMENT/A DVANTAGE - HMO) [id number] Chantel S Yamileth [id number] Chantel S Yamileth 02/23/2023 1 [facility] (MEDICARE REPLACEMENT/A DVANTAGE - HMO) [id number] Chantel S Yamileth [id number] Chantel S Yamileth 08/24/2023 1 [facility] (MEDICARE REPLACEMENT/A DVANTAGE - HMO) [id number] Chantel S Yamileth [id number] Chantel S Yamileth 02/21/2024 1 [facility] (MEDICARE REPLACEMENT/A DVANTAGE - HMO) [id number] Chantel S Yamileth [id number] Chantel S Yamileth 08/21/2024 1 [facility] (MEDICARE REPLACEMENT/A DVANTAGE - HMO) [id number] Chantel Carson [id number] Chantel Carson Notes Date Note Type Note Provider Name and Address Organization Details Recorded Time 3 text/html Patient Name: Chantel Carlinate Of Service: Sunday ( 08.25.2022 ): 1945 Age: 77 Vital Signs:Blood Pressure: Sitting Rt. Arm 138/82Pulse: Sitting 88 /min and RegularRespirations: 12Height 62 in or 1.6 mWeight 133 lb or 60.3 kgBMI 24.3Temperature: 97.2 F or 36.2 CDCCT HAIC: 5.6 Calculated MB mg%Pulse Oximetry: 96 % at rest on no oxygen Chief Complaint: Addressed in HPI Problems or conditions discussed in the HPI were the only ones reviewed during the encounter.Only social and family history addressed in the HPI were reviewed during this encounter. Attendant(s): None Constitutional and Systemic Symptoms: none Medication Reconciliation: from medication list. History of Present Illness #1. Essential Hypertension: Stage: Stage I Interval Neurological Complaints no headaches, dizziness, weakness, visual changes, ataxia, aphasia and apraxia. No shortness of breath, orthopnea or cardiovascular symptoms. No other symptoms related to end organ damage. Pressure has been under excellent control. Currently normal. No other end organ [...] management and include diet and Zocor. #3. Type II Diabetes: Has had no polyuria polyphagia or polydipsia. Has had no hypoglycemic like responses. No new history of any numbness, tingling, weakness or visual problems. No nausea, anorexia or other constitutional symptoms. There has been no foot problems or non healing lesions. The last HAIC was DCCT HAIC: 5.6 Calculated MB mg%. Average blood sugars 116-125 mg%. Checking sugars : several times a week Medication Types Include: Metformin Secondary complications include none. Macro-vascular complications include none. Therapy reviewed regarding diabetic management and include Glucophage Compliance: good Renal Protection: ARELIS inhibitors Lipid management: statins Urinary microalbumin: A1 . Ophthalmological: has seen eye doctor within the last year#4. Hypothyroidism clinically stable. Currently taking levothyroxine and doing well. No interval complaints of any overactivity or under activity symptomatology related to the thyroid.Medication List Reviewed and Reconciled 08/25/2022Hydrochlorothia zide 25 MG (TABLET - ORAL) Qd (On Hold)Synthroid 0.075 MG One Daily For ThyroidEscitalopram 20 MG (CAPSULE - ORAL) One DailyLisinopril 40 MG TABLET Once DailyAspirin 81 MG One DialyZocor 20 MG (TABLET - ORAL) Once DailyNorvasc 5 MG (TABLET - ORAL) Once DailyGlucophage 1 GM (TABLET - ORAL) One BidSocial HistorySOCIAL HISTORY:Smoking Hx: 1 of cigarettes per day for 5 years. Quit 1969 Drinking Hx: 3 Cups of coffee per day, 2 Cups of tea per day.Exercise: InfrequentlySexual Hx: Sexually ActiveOccupation: HousewifeFamily HistoryFAMILY HISTORY:Mother 90 years old from Dementia and CHFFather 89 years old from HTN, Arthritis and infirmities2 Brothers 1 Living of cirrhosis2 Sisters 2 Living Peter Lux MD [address] [address], [place], [address], [facility] 08/25/2022 11:28:10 3 text/html [facility]: [facility] Of Service: Sunday ( 02.23.2023 ): 1945 Age: 77 There has been approximately a 5 lb weight gain since 08/25/2022. This represents approximately a 3.8% change in weight. Weight change attributable to lifestyle changes. Vital Signs:Blood Pressure: Sitting Rt. Arm 140/84Pulse: Sitting 84 /min and RegularRespirations: 12Height 62 in or 1.6 mWeight 138 lb or 62.6 kgBMI 25.2Temperature: 97.5 F or 36.4 CDCCT HAIC: 6.4 Calculated MB mg%Pulse Oximetry: 98 % at rest on no oxygen Chief Complaint: Addressed in HPI Problems or conditions discussed in the HPI were the only ones reviewed during the encounter.Only social and family history addressed in the HPI were reviewed during this encounter. Attendant(s): NoneConstitutional and Systemic Symptoms: none Medication Reconciliation: from medication list. History of Present Illness #1. Essential Hypertension: Stage: Stage I Interval Neurological Complaints no headaches, dizziness, weakness, visual changes, ataxia and aphasia. No shortness of breath, orthopnea or cardiovascular symptoms. No other symptoms related to end organ damage. Pressure has been under excellent control. Currently normal. No other end organ [...] Heat intolerance: no Fatigue: no Weight gain: yes Difficulty concentrating: no Muscle Symptoms: none Skin [...] non healing lesions. [facility] Calculated MB mg%. Average blood sugars 116-125 mg%. Checking sugars : several times a week Medication Types Include: diet Secondary complications include none. Macro-vascular complications include none. Therapy reviewed regarding diabetic management and include diet only Compliance: good Renal Protection: ARELIS inhibitors Lipid management: statins Urinary microalbumin: A1 . Ophthalmological: has seen eye doctor within the last yearMedication List Reviewed and Reconciled 02/23/2023Hydrochlorothia zide 25 MG (TABLET - ORAL) Qd (On Hold)Synthroid 0.075 MG One Daily For ThyroidEscitalopram 20 MG (CAPSULE - ORAL) One DailyLisinopril 40 MG TABLET Once DailyAspirin 81 MG One DialyZocor 20 MG (TABLET - ORAL) Once DailyNorvasc 5 MG (TABLET - ORAL) Once DailyGlucophage 1 GM (TABLET - ORAL) One Bid (On Hold)Social HistorySOCIAL HISTORY:Smoking Hx: 1 of cigarettes per day for 5 years. Quit 1969 Drinking Hx: 3 Cups of coffee per day, 2 Cups of tea per day.Exercise: InfrequentlySexual Hx: Sexually ActiveOccupation: HousewifeFamily HistoryFAMILY HISTORY:Mother 90 years old from Dementia and CHFFather 89 years old from HTN, Arthritis and infirmities2 Brothers 1 Living of cirrhosis2 Sisters 2 Living Peter Lux MD [address] [facility], [facility] [address], [place], [address], [facility] [employer] 02/23/2023 11:01:03 4 text/html Patient Name: Chantel Daniel Of Service: Sunday ( 08.24.2023 ): 1945 Age: 78 There has been approximately a 3 lb weight gain since 02/23/2023. This represents approximately a 2.2% change in weight. Weight change attributable to lifestyle changes. Vital Signs:Blood Pressure: Sitting Rt. Arm 138/72Pulse: Sitting 76 /min and RegularRespiratory Rate: 12Height 62 in or 1.6 mWeight 141 lb or 64.0 kgBMI 25.8Temperature: 97 F or 36.1 CPulse Oximetry: 96 % at rest on no oxygen Chief Complaint: Addressed in HPI Problems or conditions discussed in the HPI were the only ones reviewed during the encounter.Only social and family history addressed in the HPI were reviewed during this encounter. Attendant(s): NoneConstitutional and Systemic Symptoms:none Medication Reconciliation: from medication list. History of Present Illness #1. Essential Hypertension: Stage: Stage I Interval Neurological Complaints no headaches, dizziness, weakness, visual changes, ataxia and aphasia. No shortness of breath, orthopnea or cardiovascular symptoms. No other symptoms related to end organ damage. Pressure has been under excellent control. Currently normal. No other end organ symptoms or findings. Therapy reviewed regarding management of hypertension and includes salt restriction and Lisinopril and Norvasc. #2. Type II Hypercholesterolaemia: Currently taking medication and tolerating well. No interval complaints of any muscle pain or arthralgia. No significant liver changes with medications. Last lipid panel: fair control. Therapy reviewed regarding treatment of cholesterol [...] non healing lesions. The last HAIC was 6.5-7.0. Average blood sugars 116-125 mg%. Checking sugars : not at all Medication Types Include: diet Secondary complications include none. Macro-vascular complications include none. Therapy reviewed regarding diabetic management and include Medication Compliance: good Renal Protection: ARELIS inhibitors Lipid management: statins Urinary microalbumin: A1 . Ophthalmological: has seen eye doctor within the last year#5. Mild anxiety and depressive disorder clinically doing well. Clinically taking escitalopram 20 mg daily and doing well. No interval complaints any new problems. Does not wish to try to wean down on this or change medication. Active Medication ListSynthroid 0.075 MG One Daily [...] 1 Living of cirrhosis2 Sisters 2 Living Peter Lux MD [address] [facility] [address], [place], [address], [facility] [employer] 08/24/2023 11:29:57 4 text/html Patient Name: Chantel Daniel Of Service: February ( 02.21.2024 ): 1945 Age: 78 There has been approximately a 3 lb weight loss since 08/24/2023. This represents approximately a 2.1% change in weight. Weight change attributable to lifestyle changes. Vital Signs:Blood Pressure: Sitting Rt. Arm 118/72Pulse: Sitting 83 /min and RegularRespiratory Rate: 14Height 62 in or 1.6 mWeight 138 lb or 62.6 kgBMI 25.2Temperature: 97.9 F or 36.6 CDCCT HAIC: 5.8 Calculated MB mg%Pulse Oximetry: 97 % at rest on no [...] Stage: Stage I Interval Neurological Complaints no headaches, dizziness, weakness, visual changes, ataxia, aphasia and apraxia. No shortness of breath, orthopnea or cardiovascular symptoms. No other symptoms related to end organ damage. Pressure has been under excellent control. Currently normal. No other end organ symptoms or findings. Therapy reviewed regarding management of hypertension and includes Type II Hypercholesterolaemia. #2. taking medication and tolerating well: Currently No. fair control interval complaints of any muscle pain or arthralgia. No significant liver changes with medications. Last lipid panel: diet and Zocor. Therapy reviewed regarding treatment of cholesterol management and include Type II. #3. no polyuria polyphagia or polydipsia Diabetes: Has had no. Has had DCCT HAIC: 5.8 Calculated MB mg% hypoglycemic like responses. No new history of any numbness, tingling, weakness or visual problems. No nausea, anorexia or other constitutional symptoms. There has been no foot problems or non healing lesions. The last HAIC was Recommend use to better control DM. CGM: unknown. Average blood sugars not at all. Checking sugars : Metformin. Medication Types Include: none Secondary complications include none. Macro-vascular complications include diet only. Therapy reviewed regarding diabetic management and include good Compliance: ARELIS inhibitors Renal Protection: statins Lipid management: A1 Urinary microalbumin: has seen eye doctor within the last year . Ophthalmological: Good Control 6.2 - 7.0. Control: no #4. Hx of hypothyroidism currently stable. Heat intolerance: no Fatigue: no Weight gain: no Difficulty concentrating: none Muscle Symptoms: normal Skin Texture: normal Skin Color: synthroid Currently taking Escitalopram. #5. Hx of depression currently stable. Pharmacological treatment : None . Suicidal thoughts or ideas: No Loss of appetite: No Sleep Disturbance: No Hallucinations: no one Is currently seeing no one. Discussed possibility of decreasing and weaning off medication. Feels that current regimen is working fine and wishes not to change the current treatment regimen. No contraindication to continue current therapy. Active Medication [...] 1 Living of cirrhosis2 Sisters 2 Living Active Medication ListSynthroid 0.075 MG One Daily [...] 1 Living of cirrhosis2 Sisters 2 Living Peter Lux MD [address] [facility], [facility] [address], [place], [address], [facility] [employer] 02/21/2024 14:39:19 5 text/html Patient Name: Chantel Daniel Of Service: August ( 08.21.2024 ): 1945 [...] cigarettes per day for 5 years. Quit 1969 Drinking Hx: 3 Cups of coffee per [...] 49 40- MG/DL Peter Lux MD [address], [facility] [address], [place], [address], [facility] 08/21/2024 10:44:39 OBGyn Episode No OBEpisode recorded.
[2024-08-22 08:55] LABS: Basophils Percent Auto 0.4 % (0.2-1.2); Eosinophils Absolute Auto 0.2 K/mm3 (0-0.3); Eosinophils Percent Auto 2.4 % (0-4.4); Hematocrit 37.8 % (37.0-47.0); Hemoglobin 12.4 g/dL (12.0-15.0); Immature Granulocyte Absolute 0.01 K/mm3 (0.00-0.031); Immature Granulocyte Percent A 0.1 % (0-0.5); Lymphocytes Absolute Auto 2.35 K/mm3 (0.9-3.2); Lymphocytes Percent Auto 34.7 % (18.3-44.2); Mean Corpuscular HGB Conc 32.8 g/dl (32-36); Mean Corpuscular Hemoglobin 29.9 pg (26-34); Mean Corpuscular Volume 91.1 fl (80-100); Mean Platelet Volume 9.4 fl (7.4-10.4); Monocytes Absolute Auto 0.6 K/mm3 (0.1-0.6); Neutrophils Absolute Auto 3.6 K/mm3 (1.3-6.7); Neutrophils Percent Auto 53.4 % (45.5-73.1); Platelet Count Result 261 k/mm3 (150-375); Red Blood Count 4.15 M/mm3 (4.2-5.4); White Blood Count 6.8 K/mm3 (4.5-10.0)
[2024-08-22 10:00] LABS: Alanine Aminotransferase 26 U/L (6-35); Albumin Level 4.7 g/dL (3.5-5.1); Alkaline Phosphatase 57 U/L (38-126); Anion Gap 11 mmol/L (4-12); Aspartate Amino Transferase 30 U/L (14-36); Bilirubin,Total 0.8 mg/dL (0.2-1.3); Blood Urea Nitrogen 20 mg/dL (7-17); Calcium 9.5 mg/dL (8.4-10.2); Carbon Dioxide 27 mmol/L (22-30); Chloride 102 mmol/L (98-107); Cholesterol 130 mg/dL (0-200); Estimated Glomerular Filt Rate 57; Glucose 115 mg/dL (65-110); HDL Direct 50 mg/dL; Potassium 3.9 mmol/L (3.4-5.0); Sodium 140 mmol/L (137-145); Triglycerides 126 mg/dL (<150)
[2024-08-22 10:12] LABS: LDL Cholesterol Direct 46 mg/dL
[2024-08-22 10:13] LABS: Creatinine Urine 180.3 mg/dL
[2024-08-22 10:16] LABS: Free T4 Free Thyroxine 1.27 ng/dL (0.78-2.19); Vitamin D 25 Hydroxy 71.2 ng/mL
[2024-08-22 10:18] LABS: MALB Creatinine Ratio 10.3 mg/g (0-30); Microalbumin Urine Random 18.5 mg/L (0-16.7)
[2024-08-22 10:28] LABS: Thyroid Stimulating Hormone 0.708 uIU/mL (0.465-4.680)
== END 2024-08-22 08:06 | disposition home or self-care (01) ==
LOC: ANHLAB 08:19
PROVIDERS: PCP Internal Medicine; Visit Provider Internal Medicine
DX: E03.9 Hypothyroidism, unspecified (principal); I10 Essential (primary) hypertension; E11.9 Type 2 diabetes mellitus without complications; E55.9 Vitamin D deficiency, unspecified; E78.00 Pure hypercholesterolemia, unspecified
CPT/HCPCS: 36415; 80053; 80061; 82043; 82306; 83036; 84439; 84443; 85025

== ENCOUNTER 2025-03-24 08:22 | Outpatient (CLI) | payer MEDICARE, SELFPAY ==
[2025-03-24 08:41] LABS: Hematocrit 38.1 % (37.0-47.0); Hemoglobin 12.5 g/dL (12.0-15.0); Immature Granulocyte Percent A 0.3 % (0-0.5); Lymphocytes Absolute Auto 2.34 K/mm3 (0.9-3.2); Mean Corpuscular HGB Conc 32.8 g/dl (32-36); Mean Corpuscular Hemoglobin 30.3 pg (26-34); Mean Corpuscular Volume 92.5 fl (80-100); Nucleated Red Blood Cells Absolute Auto 0.000 K/mm3 (0.0-0.012); Nucleated Red Blood Cells Perc 0.0 % (0.0-0.2); Platelet Count Result 273 k/mm3 (150-375); Red Blood Count 4.12 M/mm3 (4.2-5.4); White Blood Count 7.2 K/mm3 (4.5-10.0)
[2025-03-24 09:30] LABS: Hemoglobin A1C 5.7 % (<5.7)
[2025-03-24 09:42] LABS: Alanine Aminotransferase 30 U/L (6-35); Albumin Level 4.4 g/dL (3.5-5.1); Alkaline Phosphatase 61 U/L (38-126); Anion Gap 8 mmol/L (4-12); Aspartate Amino Transferase 35 U/L (14-36); Bilirubin,Total 0.4 mg/dL (0.2-1.3); Blood Urea Nitrogen 17 mg/dL (7-17); Calcium 9.3 mg/dL (8.4-10.2); Carbon Dioxide 29 mmol/L (22-30); Chloride 99 mmol/L (98-107); Cholesterol 159 mg/dL (0-200); Estimated Glomerular Filt Rate > 60; Glucose 113 mg/dL (65-110); HDL Direct 50 mg/dL; Potassium 4.1 mmol/L (3.4-5.0); Sodium 136 mmol/L (137-145); Total Protein 7.9 g/dL (6.3-8.2); Triglycerides 158 mg/dL (<150)
[2025-03-24 09:57] LABS: Free T4 Free Thyroxine 1.12 ng/dL (0.78-2.19)
[2025-03-24 10:12] LABS: Thyroid Stimulating Hormone 0.436 uIU/mL (0.465-4.680)
[2025-03-24 10:16] LABS: MALB Creatinine Ratio 8.7 mg/g (0-30)
== END 2025-03-24 08:23 | disposition home or self-care (01) ==
LOC: ANHLAB 08:30
PROVIDERS: PCP Internal Medicine
DX: E11.9 Type 2 diabetes mellitus without complications (principal); E78.00 Pure hypercholesterolemia, unspecified; E55.9 Vitamin D deficiency, unspecified
CPT/HCPCS: 36415; 80053; 80061; 82043; 82306; 83036; 84439; 84443; 85025